=== PATIENT | female | born 1960 | race Caucasian/White ===

== ENCOUNTER 2017-12-23 09:23 | Inpatient (IN) ==
[2017-12-23] MEDS ORDERED: Hydrocortisone Sod Succinate 100 MG Vial IV.PUSH ONE (10:00)
[2017-12-23] MEDS ORDERED: Sod Chloride 0.9% Inj 1,000 ML IV.SIG ONE (10:00)
--- NOTE | 2017-12-23 10:08 | ED ---
HPI General Chief complaint: Nausea/Vomiting/Diarrhea Stated complaint: bladder inf/vomiting/high bp x 4 dasy Time Seen by Provider: 12/23/17 10:00 Source: patient Mode of arrival: ambulatory Limitations: no limitations History of Present Illness HPI narrative: This 57-year-old female is complaining of vomiting and diarrhea. She says she has not been able to hold anything down since Thursday. She has been having a lot of pain across her lower back. She does have a history of rheumatoid arthritis and is on medication for that. She is supposed to take prednisone daily but has not been able to take any medication for a couple of days. She has a implant in her bladder which controls her urine output and she is not able to have MRIs done. She did go to urgent care center this morning and was told she had a urinary tract infection but was recommended that she come here. Related Data Home Medications Medication Instructions Recorded Confirmed aripiprazole [Abilify] 10 mg PO DAILY 12/23/17 12/23/17 duloxetine [Cymbalta] 60 mg PO DAILY 12/23/17 12/23/17 esomeprazole magnesium [Nexium] 40 mg PO DAILY 12/23/17 12/23/17 metoprolol succinate [Toprol XL] 25 mg PO DAILY 12/23/17 12/23/17 naproxen 500 mg PO BID 12/23/17 12/23/17 prednisolone 5 mg PO DAILY 12/23/17 12/23/17 ranitidine HCl [Zantac] 150 mg PO DAILY 12/23/17 12/23/17 rosuvastatin [Crestor] 10 mg PO DAILY 12/23/17 12/23/17 tizanidine 4 mg PO TID 12/23/17 12/23/17 topiramate [Topamax] 100 mg PO BID 12/23/17 12/23/17 Allergies Allergy/AdvReac Type Severity Reaction Status Date / Time Iodinated Contrast- Oral and Allergy Severe Hives Verified 12/23/17 09:39 IV Dye [Contrast] nitrofurantoin Allergy Severe Hives Verified 12/23/17 10:00 [From Macrobid] Sulfa (Sulfonamide Allergy Severe Hives Verified 12/23/17 10:00 Antibiotics) Review of Systems Constitutional Reports malaise and Reports poor appetite Gastrointestinal Reports nausea and Reports vomiting Musculoskeletal Reports back pain and Reports arthralgias [facility] Medical History Medical History Asthma (Acute) Depression (Acute) GERD (gastroesophageal reflux disease) (Acute) Headache, migraine (Acute) Rheumatoid arthritis (Acute) Surgical History Surgical History H/O foot surgery (Acute) History of esophageal surgery (Acute) History of hip replacement (Acute) Social History Social History Substance History: No History of Abuse Second Hand Smoke Exposure: No Smoking Status: Never smoker How Often Do You Have a Drink Containing Alcohol: Monthly or less Recent Travel in [facility] within the Last 8 Weeks: No Recent Out of Country Travel within the Last 8 Weeks: No Immunization History Tetanus Immunization: Unsure Exam Narrative Exam Narrative: GENERAL: Well-developed female SKIN: Focused skin assessment warm/dry. HEAD: Atraumatic. Normocephalic. EYES: Pupils equal and round. No scleral icterus. No injection or drainage. ENT: No nasal bleeding or discharge. Mucous membranes dry NECK: Trachea midline. No JVD. CARDIOVASCULAR: Regular rate and rhythm. No murmur appreciated. RESPIRATORY: No accessory muscle use. Clear to auscultation. Breath sounds equal bilaterally. GASTROINTESTINAL: Abdomen soft, mild diffuse tenderness. There is no distention. Bowel sounds are present MUSCULOSKELETAL: No obvious deformities. No clubbing. No cyanosis. No edema. NEUROLOGICAL: Awake and alert. No obvious cranial nerve deficits. Motor grossly within normal limits. Normal speech. She has tenderness of the lower back. Sensation of the legs is intact strength appears equal PSYCHIATRIC: Appropriate mood and affect; insight and judgment normal. Course Initial Documented Vital Signs Temperature 100.7 F H 12/23/17 09:34 Pulse Rate 120 H 12/23/17 09:34 Respiratory Rate 20 12/23/17 09:34 Blood Pressure 123/69 12/23/17 09:34 Pulse Oximetry 97 12/23/17 09:34 Last Documented Vital Signs Temperature 100.7 F H 12/23/17 09:34 Pulse Rate 108 H 12/23/17 09:56 Respiratory Rate 16 12/23/17 09:56 Blood Pressure 128/75 12/23/17 09:56 Pulse Oximetry 96 12/23/17 09:56 Medical Decision Making MDM Narrative Medical decision making narrative: Patient has received IV fluids. Her hemoglobin is 13 8 with a white count of 9.6. Her platelet count is only 50, 000. Patient is not aware of any history of previous problem with platelets. Potassium is low at 3.1. Urinalysis does show significant urinary tract infection and she has been started on Rocephin. She has been given solute Cortef because she has been vomiting and has been on daily prednisone. I think the patient requires admission for initial treatment Medical Screen Exam Complete: Yes Emergency Medical Condition: Yes Differential Diagnosis Differential Diagnosis: Differential includes gastroenteritis, bowel obstruction , back pain exacerbation, Benson's crisis, Lab Data Result diagrams: 12/23/17 10:10 12/23/17 10:10 Lab Results 12/23/17 12/23/17 12/23/17 Range/Units 10:00 10:10 10:10 CBC w Diff Slide review pending WBC 9.6 (4.0-11.0) th/mm3 RBC 4.46 (4.00-5.30) mil/mm3 Hgb 13.8 (11.6-15.3) gm/dL Hct 41.1 (35.0-46.0) % MCV 92.2 (80.0-100.0) fL MCH 31.0 (27.0-34.0) pg MCHC 33.7 (32.0-36.0) % RDW 13.6 (11.6-17.2) % Plt Count 50 L (150-450) th/mm3 MPV 10.4 (7.0-11.0) fL Neut % (Auto) 85.8 H (16.0-70.0) % Lymph % (Auto) 5.2 L (9.0-44.0) % Hale % (Auto) 6.5 (0.0-8.0) % Eos % (Auto) 0.9 (0.0-4.0) % Baso % (Auto) 1.6 (0.0-2.0) % Neut # (Auto) 8.2 H (1.8-7.7) th/mm3 Lymph # (Auto) 0.5 L (1.0-4.8) th/mm3 Hale # (Auto) 0.6 (0.0-0.9) th/mm3 Eos # (Auto) 0.1 (0.0-0.4) th/mm3 Baso # (Auto) 0.2 (0.0-0.2) th/mm3 WBC Differential . Diff Scan Auto diff confirmed Differential Comment . Platelet Estimate Low L (Normal) Platelet Morphology Normal (Normal) Sodium 142 (136-145) meq/L Potassium 3.1 L (3.5-5.1) meq/L Chloride 106 (98-107) meq/L Carbon Dioxide 27.5 (21.0-32.0) meq/L Anion Gap 9 (5-15) meq/L BUN 7 (7-18) mg/dL Creatinine 0.99 (0.50-1.00) mg/dL Estimated GFR 57 L (>89) mL/min Random Glucose 152 H (74-106) mg/dL Lactic Acid (0.4-2.0) mmol/L Calcium 8.4 L (8.5-10.1) mg/dL Magnesium 2.1 (1.5-2.5) mg/dL Total Bilirubin 0.5 (0.2-1.0) mg/dL AST 18 (15-37) U/L ALT 22 (10-53) U/L Alkaline Phosphatase 121 H (45-117) U/L Total Protein 6.4 (6.4-8.2) g/dL Albumin 3.3 L (3.4-5.0) g/dL Ur Collection Type Clean catch Urine Color Yellow (Yellw/Straw) Urine Clarity Slightly cloudy (Clear) Urine pH 6.0 (5.0-8.5) Ur Specific Anton 1.010 (1.002-1.035) Urine Protein 30 H (Neg-Trace) mg/dL Urine Glucose (UA) Negative (Negative) mg/dL Urine Ketones 40 H (Negative) mg/dL Urine Occult Blood Moderate H (Negative) Urine Nitrate Positive H (Negative) Urine Bilirubin Negative (Negative) Urine Urobilinogen 0.2 (Less than 2) mg/dL Ur Leukocyte Esterase Moderate H (Negative) Urine RBC 4-15 H (0-3) /hpf Urine WBC 51-189 H (0-5) /hpf Ur Squamous Epith Cells 0-5 (0-5) /hpf Urine Bacteria Many H (None) /hpf Micro UA Comment Culture indicated Ur Microscopic Review Microscopic reviewed Urine Culture Comments Culture indicated 12/23/17 Range/Units 10:10 CBC w Diff WBC (4.0-11.0) th/mm3 RBC (4.00-5.30) mil/mm3 Hgb (11.6-15.3) gm/dL Hct (35.0-46.0) % MCV (80.0-100.0) fL MCH (27.0-34.0) pg MCHC (32.0-36.0) % RDW (11.6-17.2) % Plt Count (150-450) th/mm3 MPV (7.0-11.0) fL Neut % (Auto) (16.0-70.0) % Lymph % (Auto) (9.0-44.0) % Hale % (Auto) (0.0-8.0) % Eos % (Auto) (0.0-4.0) % Baso % (Auto) (0.0-2.0) % Neut # (Auto) (1.8-7.7) th/mm3 Lymph # (Auto) (1.0-4.8) th/mm3 Hale # (Auto) (0.0-0.9) th/mm3 Eos # (Auto) (0.0-0.4) th/mm3 Baso # (Auto) (0.0-0.2) th/mm3 WBC Differential Diff Scan Differential Comment Platelet Estimate (Normal) Platelet Morphology (Normal) Sodium (136-145) meq/L Potassium (3.5-5.1) meq/L Chloride (98-107) meq/L Carbon Dioxide (21.0-32.0) meq/L Anion Gap (5-15) meq/L BUN (7-18) mg/dL Creatinine (0.50-1.00) mg/dL Estimated GFR (>89) mL/min Random Glucose (74-106) mg/dL Lactic Acid 1.7 (0.4-2.0) mmol/L Calcium (8.5-10.1) mg/dL Magnesium (1.5-2.5) mg/dL Total Bilirubin (0.2-1.0) mg/dL AST (15-37) U/L ALT (10-53) U/L Alkaline Phosphatase (45-117) U/L Total Protein (6.4-8.2) g/dL Albumin (3.4-5.0) g/dL Ur Collection Type Urine Color (Yellw/Straw) Urine Clarity (Clear) Urine pH (5.0-8.5) Ur Specific Anton (1.002-1.035) Urine Protein (Neg-Trace) mg/dL Urine Glucose (UA) (Negative) mg/dL Urine Ketones (Negative) mg/dL Urine Occult Blood (Negative) Urine Nitrate (Negative) Urine Bilirubin (Negative) Urine Urobilinogen (Less than 2) mg/dL Ur Leukocyte Esterase (Negative) Urine RBC (0-3) /hpf Urine WBC (0-5) /hpf Ur Squamous Epith Cells (0-5) /hpf Urine Bacteria (None) /hpf Micro UA Comment Ur Microscopic Review Urine Culture Comments Imaging Data Radiologist's impression: Abdomen/Pelvis CT 12/23/17 10:04 CONCLUSION: 1. Fibroid uterus, small hiatal hernia. 2. Nonspecific gas pattern. I do not see evidence for colitis or inflammatory changes in the mesentery. Lumbar Spine CT 12/23/17 10:04 CONCLUSION: 1. Marked intervertebral disc space narrowing and sclerosis at the L2-3 level consistent with degenerative disease. No evidence of an acute fracture Discharge Plan Discharge Disposition Patient Disposition: 30 Still Patient Discharge Condition Condition: Fair Discharge Details Diagnosis: Urinary tract infection Physicians Team ED Provider: Spencer Garcia Primary Care Provider: NON STAFF,PROVIDER Rxs /Orders / Referrals /Forms Prescriptions: No Action tizanidine 4 mg Tablet 4 mg PO TID RF: 0 metoprolol succinate [Toprol XL] 25 mg Tablet Extended Release 24 Hr 25 mg PO DAILY RF: 0 topiramate [Topamax] 100 mg Tablet 100 mg PO BID RF: 0 naproxen 500 mg Tablet 500 mg PO BID RF: 0 esomeprazole magnesium [Nexium] 40 mg Capsule,Delayed Release(Dr/Ec) 40 mg PO DAILY RF: 0 ranitidine HCl [Zantac] 150 mg Tablet 150 mg PO DAILY RF: 0 prednisolone 5 mg Tablet 5 mg PO DAILY RF: 0 aripiprazole [Abilify] 10 mg Tablet 10 mg PO DAILY RF: 0 rosuvastatin [Crestor] 10 mg Tablet 10 mg PO DAILY RF: 0 duloxetine [Cymbalta] 60 mg Capsule,Delayed Release(Dr/Ec) 60 mg PO DAILY RF: 0 Discharge Interventions Interventions: Vital Signs Last Done: 12/23/17 09:56 Status ED Status: With Doctor
[2017-12-23 10:34] LABS: Baso # (Auto) 0.2 th/mm3 (0.0-0.2); Baso % (Auto) 1.6 % (0.0-2.0); Eos # (Auto) 0.1 th/mm3 (0.0-0.4); Eos % (Auto) 0.9 % (0.0-4.0); Hematocrit 41.1 % (35.0-46.0); Hemoglobin 13.8 gm/dL (11.6-15.3); Lymph # (Auto) 0.5 th/mm3 (1.0-4.8); Lymph % (Auto) 5.2 % (9.0-44.0); Mean Corpuscular HGB Conc 33.7 % (32.0-36.0); Mean Corpuscular Volume 92.2 fL (80.0-100.0); Mean Platelet Volume 10.4 fL (7.0-11.0); Mono # (Auto) 0.6 th/mm3 (0.0-0.9); Mono % (Auto) 6.5 % (0.0-8.0); Neut # (Auto) 8.2 th/mm3 (1.8-7.7); Neut % (Auto) 85.8 % (16.0-70.0); Platelet Count 50 th/mm3 (150-450); Red Blood Count 4.46 mil/mm3 (4.00-5.30); Red Cell Distribution Width 13.6 % (11.6-17.2); White Blood Count 9.6 th/mm3 (4.0-11.0)
[2017-12-23 10:34] LABS: Bilirubin,Urine Negative (Negative); Clarity,Urine Slightly Cloudy (Clear); Color,Urine Yellow (Yellw/Straw); Glucose,Urine (UA) Negative (Negative); Leukocyte Esterase,Urine Moderate (Negative); Nitrite,Urine Positive (Negative); Urobilinogen,Urine 0.2 mg/dL (Less than 2)
[2017-12-23 10:45] LABS: Chloride 106 meq/L (98-107); Potassium 3.1 meq/L (3.5-5.1); Sodium 142 meq/L (136-145)
[2017-12-23 10:45] LABS: Bacteria,Urine Many /hpf; Squamous Epithelial Cell,Urine 0-5 /hpf (0-5); WBC,Urine 51-189 /hpf (0-5)
[2017-12-23 10:48] LABS: Albumin 3.3 g/dL (3.4-5.0); Anion Gap 9 meq/L (5-15); Blood Urea Nitrogen 7 mg/dL (7-18); Calcium 8.4 mg/dL (8.5-10.1); Carbon Dioxide 27.5 meq/L (21.0-32.0); Glucose,Random 152 mg/dL (74-106); Magnesium 2.1 mg/dL (1.5-2.5)
[2017-12-23 10:51] LABS: Alanine Aminotransferase 22 U/L (10-53); Aspartate Aminotransferase 18 U/L (15-37); Glomerular Filtration Rate 57 mL/min (>89)
[2017-12-23 10:53] LABS: Total Protein 6.4 g/dL (6.4-8.2)
[2017-12-23 10:54] LABS: Alkaline Phosphatase 121 U/L (45-117)
--- NOTE | 2017-12-23 10:58 | CT ---
EXAM DATE: 12/23/2017 10:49 AM EST AGE/SEX: 57 years / Female INDICATIONS: Nausea, vomiting and diarrhea. Low back pain. CLINICAL DATA: This is the patient's initial encounter. Patient reports that signs and symptoms have been present for 4 - 6 days and indicates a pain score of 4/10. MEDICAL/SURGICAL HISTORY: Gastroesophageal reflux disease. Asthma. Rheumatoid arthritis. None . RADIATION DOSE: 17.06 CTDI (mGy) COMPARISON: POI, CT ABDOMEN AND PELVIS W/ CONTRAST, 06/12/2015. . TECHNIQUE: Multiple contiguous axial images were obtained through the abdomen. Images were obtained using multiple row detector helical technique. Using automated exposure control and adjustment of the mA and/or kV according to patient size, radiation dose was kept as low as reasonably achievable to o btain optimal diagnostic quality images. DICOM format image data is available electronically for rev iew and comparison. FINDINGS: Lower lungs are clear. Liver free of focal defects. Gallbladder prominent without stones or gallbladder wall thickening Pancreas and spleen appear normal Adrenals are unremarkable Right and left kidneys appear normal Cecum, ascending, transverse and descending colon appear normal. There is no significant retroperitoneal adenopathy In the pelvis there are minimal diverticuli in the sigmoid colon. Fibroid uterus is evident with some calcification. Total hip arthroplasty on the right causing moderate artifact There is no ascites or adenopathy. CONCLUSION: 1. Fibroid uterus, small hiatal hernia. 2. Nonspecific gas pattern. I do not see evidence for colitis or inflammatory changes in the mesente ry. Electronically signed by: Sharad Sosa MD 12/23/2017 10:57 AM EST
[2017-12-23 11:08] LABS: Platelet Morphology Normal (Normal)
[2017-12-23] MEDS ORDERED: Potassium Chlor 10 mEq Premix 10 MEQ/100 ML PIGGYBACK IV.SIG ONE (11:09)
--- NOTE | 2017-12-23 11:09 | CT ---
EXAM DATE: 12/23/2017 10:59 AM EST AGE/SEX: 57 years / Female INDICATIONS: Low back pain. Nausea, vomiting and diarrhea. CLINICAL DATA: This is the patient's initial encounter. Patient reports that signs and symptoms have been present for 4 - 6 days and indicates a pain score of 10/10. MEDICAL/SURGICAL HISTORY: Gastroesophageal reflux disease. Rheumatoid arthritis. Asthma. None. RADIATION DOSE: . CTDI (mGy) ; Reconstructed from previous dataset, no dose COMPARISON: No prior exams available for comparison. TECHNIQUE: Contiguous axial images were acquired with a multirow detector CT scanner without contras t. Multiplanar reconstructions in the sagittal and coronal plane were also performed. Using automate d exposure control and adjustment of the mA and/or kV according to patient size, radiation dose was k ept as low as reasonably achievable to obtain optimal diagnostic quality images. DICOM format image data is available electronically for review and comparison. FINDINGS: Vertebrae: Normal vertebral body height. Marked intervertebral disc space narrowing with sclerosis a t the L2-3 level. Alignment: Normal. No subluxation. T12-L1: The thecal sac has a normal diameter. No evidence of disc bulge or protrusion. The neural foramina are patent bilaterally. L1-L2: The thecal sac has a normal diameter. No evidence of disc bulge or protrusion. The neural f oramina are patent bilaterally. L2-L3: The thecal sac has a normal diameter. No evidence of disc bulge or protrusion. The neural f oramina are patent bilaterally. L3-L4: The thecal sac has a normal diameter. No evidence of disc bulge or protrusion. The neural f oramina are patent bilaterally. L4-L5: The thecal sac has a normal diameter. No evidence of disc bulge or protrusion. The neural f oramina are patent bilaterally. L5-S1: The thecal sac has a normal diameter. No evidence of disc bulge or protrusion. The neural f oramina are patent bilaterally. CONCLUSION: 1. Marked intervertebral disc space narrowing and sclerosis at the L2-3 level consistent with degene rative disease. No evidence of an acute fracture Electronically signed by: Melvin Ashley MD 12/23/2017 11:07 AM EST
[2017-12-23] MEDS: Sod Chloride 0.9% Inj 1,000 ML IV.CONT SCH ×3 (11:27→15:45)
[2017-12-23] MEDS ORDERED: Morphine Sulfate Inj 8 MG/ML Vial IV.PUSH ONE (11:34)
[2017-12-23] MEDS ORDERED: Bisacodyl 10 MG Supp RECTAL PRN (12:43)
--- NOTE | 2017-12-23 13:30 | P.HP ---
History of Present Illness Primary Care Physician: PROVIDER NON STAFF Chief Complaint: Nausea, vomiting and diarrhea History of Present Illness: This is a 57-year-old female patient with a known medical history of urinary frequency with bladder stimulator placement, RA, hyperlipemia, and GERD who presented to the ED with complaints of nausea, vomiting and diarrhea x 3 days. Patient states that she has been sick to her stomach starting on Thursday and has been unable to eat anything without vomiting. She also states that she has had some loose stool over the weekend, denies any fever at home. Does admit to chills. She denies any cough, shortness of breath, abdominal pain, or dysuria. Does complain of urinary frequency abnormal to her baseline. Denies any recent antibiotic use or recent UTI. Patient does have a history of a bladder stimulator that was placed roughly 15 years ago, follows with Dr. Nash, this was rechecked about 2 months ago without any problems. Patient does follow with PCP in [place], patient [place] her [place]. PCP has recently placed her on prednisone for better control of her RA pain. - Diagnosis (1) Nausea and vomiting (2) Urinary tract infection (3) Thrombocytopenia Review of Systems All other systems reviewed negative except as stated in HPI PMFSH - History History Provided By: Patient - Medical History Medical History: Medical History (Last Reviewed 12/23/17 @ 13:27 by Eulalia Jansen) Asthma Depression GERD (gastroesophageal reflux disease) Headache, migraine Rheumatoid arthritis - Surgical History Surgical History: Surgical History (Last Updated 12/23/17 @ 13:28 by Eulalia Jansen) History of knee replacement History of tonsillectomy H/O foot surgery History of esophageal surgery History of hip replacement - Family History Family History: Family History (Last Updated 12/23/17 @ 13:27 by Eulalia Jansen) Mother Breast cancer - Social History I have reviewed the patient's Social History: Yes - Tobacco History Second Hand Smoke Exposure: No Smoking Status: Never smoker - Alcohol History How Often Do You Have a Drink Containing Alcohol: Monthly or less - Substance Use History Substance History: No History of Abuse - Travel History Recent Travel in the [place] Within the Last 8 Weeks: No Recent Travel Out of the Country Within the Last 8 Weeks: No - Immunization History Tetanus Immunization: Unsure Medications and Allergies Active Medications: Active Medications Acetaminophen (Tylenol) 650 mg PO Q4H PRN PRN Reason: Temp > 100.4 Al Hydroxide/Mg Hydroxide (Milk Of Magnesia Liq) 30 ml PO Q12H PRN PRN Reason: Mild Constipation Bisacodyl (Dulcolax Supp) 10 mg RECTAL DAILY PRN PRN Reason: SEVERE CONSITIPATION Sodium Chloride (Ns Inj) 1,000 mls @ 300 mls/hr IV.CONT .Q3H20M MATHIEU Last Infusion: 12/23/17 12:23 Dose: 300 mls/hr Sodium Chloride (Ns Inj) 1,000 mls @ 100 mls/hr IV.CONT .Q10H MATHIEU Ceftriaxone Sodium 1,000 mg/ (Sodium Chloride) 100 mls @ 200 mls/hr IV.SIG Q24H MATHIEU Lactulose (Lactulose Liq) 30 ml PO DAILY PRN PRN Reason: SEVERE CONSITIPATION Ondansetron HCl (Zofran Inj) 4 mg IV.PUSH Q6H PRN PRN Reason: NAUSEA OR VOMITING Sennosides (Senokot) 17.2 mg PO Q12H PRN PRN Reason: Moderate Constipation Sodium Chloride (Ns Flush) 2 ml IV.FLUSH PRN PRN PRN Reason: FLUSH AFTER USING IV ACCESS Allergies Allergy/AdvReac Type Severity Reaction Status Date / Time Iodinated Contrast- Oral and Allergy Severe Hives Verified 12/23/17 09:39 IV Dye [Contrast] nitrofurantoin Allergy Severe Hives Verified 12/23/17 10:00 [From Macrobid] Sulfa (Sulfonamide Allergy Severe Hives Verified 12/23/17 10:00 Antibiotics) Home Medications Medication Instructions Recorded Confirmed Type aripiprazole [Abilify] 10 mg PO DAILY 12/23/17 12/23/17 History duloxetine [Cymbalta] 60 mg PO DAILY 12/23/17 12/23/17 History esomeprazole magnesium [Nexium] 40 mg PO DAILY 12/23/17 12/23/17 History metoprolol succinate [Toprol XL] 25 mg PO DAILY 12/23/17 12/23/17 History naproxen 500 mg PO BID 12/23/17 12/23/17 History prednisolone 5 mg PO DAILY 12/23/17 12/23/17 History ranitidine HCl [Zantac] 150 mg PO DAILY 12/23/17 12/23/17 History rosuvastatin [Crestor] 10 mg PO DAILY 12/23/17 12/23/17 History tizanidine 4 mg PO TID 12/23/17 12/23/17 History topiramate [Topamax] 100 mg PO BID 12/23/17 12/23/17 History Exam Vital signs: Vital Signs 12/23/17 09:34 12/23/17 09:56 12/23/17 12:32 Temperature 100.7 F H Pulse Rate 120 H 108 H 102 H Respiratory Rate 20 16 16 Blood Pressure 123/69 128/75 142/70 H Pulse Oximetry 97 96 98 Intake & Output 12/22/17 12/23/17 12/23/17 18:59 06:59 18:59 Intake Total 1500 / 1500 Balance 1500 / 1500 Weight 85.8 kg Intake: IV 1500 / 1500 NS Inj 1,000 ML @ 300 mls/hr IV 300 / 300 .CONT .Q3H20M [facility] Rx#: [id number] KCl 10 mEq Premix Inj 10 meq In 100 / 100 100 ml @ 100 mls/hr IV.SIG ONCE ONE Rx#:[id number] NS Inj 1,000 ML @ Wide Open IV. 1000 / 1000 SIG BOLUS ONE Rx#:[id number] Rocephin Inj 1,000 MG In NS Inj 100 / 100 100 ML @ 200 mls/hr IV.SIG ONCE ONE Rx#:[id number] Narrative: GENERAL: Well-developed, well-nourished patient in [facility]. SKIN: Warm and dry. No rash. HEAD: Normocephalic. Atraumatic. EYES: Pupils equal and round. No scleral icterus. No injection or drainage. ENT: No nasal bleeding or discharge. Mucous membranes pink and moist. NECK: Supple. Trachea midline. CARDIOVASCULAR: Regular rate and rhythm. S1, S2 noted. No murmur appreciated. RESPIRATORY: No accessory muscle use. Clear to auscultation. Breath sounds equal bilaterally. GASTROINTESTINAL: Abdomen soft, non-tender, nondistended. Normoactive bowel sounds x4. MUSCULOSKELETAL: No obvious deformities. Extremities without clubbing, cyanosis , or edema. NEUROLOGICAL: Awake and alert. No obvious cranial nerve deficits. Motor grossly within normal limits. 5/5 muscle strength in bilateral upper and lower extremities. Normal speech. PSYCHIATRIC: Appropriate mood and affect; insight and judgment normal. Results - Labs CBC & Chem 7: 12/23/17 10:10 12/23/17 10:10 Labs: Laboratory Results - last 24 hr 12/23/17 12/23/17 12/23/17 10:00 10:10 10:10 CBC w Diff Slide review pending WBC 9.6 RBC 4.46 Hgb 13.8 Hct 41.1 MCV 92.2 MCH 31.0 MCHC 33.7 RDW 13.6 Plt Count 50 L MPV 10.4 Neut % (Auto) 85.8 H Lymph % (Auto) 5.2 L [place] % (Auto) 6.5 Eos % (Auto) 0.9 Baso % (Auto) 1.6 Neut # (Auto) 8.2 H Lymph # (Auto) 0.5 L [place] # (Auto) 0.6 Eos # (Auto) 0.1 Baso # (Auto) 0.2 WBC Differential . Diff Scan Auto diff confirmed Differential Comment . Platelet Estimate Low L Platelet Morphology Normal Sodium 142 Potassium 3.1 L Chloride 106 Carbon Dioxide 27.5 Anion Gap 9 BUN 7 Creatinine 0.99 Estimated GFR 57 L Random Glucose 152 H Lactic Acid Calcium 8.4 L Magnesium 2.1 Total Bilirubin 0.5 AST 18 ALT 22 Alkaline Phosphatase 121 H Total Protein 6.4 Albumin 3.3 L Ur Collection Type Clean catch Urine Color Yellow Urine Clarity Slightly cloudy Urine pH 6.0 Ur Specific [place] 1.010 Urine Protein 30 H Urine Glucose (UA) Negative Urine Ketones 40 H Urine Occult Blood Moderate H Urine Nitrate Positive H Urine Bilirubin Negative Urine Urobilinogen 0.2 Ur Leukocyte Esterase Moderate H Urine RBC 4-15 H Urine WBC 51-189 H Ur Squamous Epith Cells 0-5 Urine Bacteria Many H Micro UA Comment Culture indicated Ur Microscopic Review Microscopic reviewed Urine Culture Comments Culture indicated 12/23/17 10:10 CBC w Diff WBC RBC Hgb Hct MCV MCH MCHC RDW Plt Count MPV Neut % (Auto) Lymph % (Auto) [place] % (Auto) Eos % (Auto) Baso % (Auto) Neut # (Auto) Lymph # (Auto) [place] # (Auto) Eos # (Auto) Baso # (Auto) WBC Differential Diff Scan Differential Comment Platelet Estimate Platelet Morphology Sodium Potassium Chloride Carbon Dioxide Anion Gap BUN Creatinine Estimated GFR Random Glucose Lactic Acid 1.7 Calcium Magnesium Total Bilirubin AST ALT Alkaline Phosphatase Total Protein Albumin Ur Collection Type Urine Color Urine Clarity Urine pH Ur Specific [place] Urine Protein Urine Glucose (UA) Urine Ketones Urine Occult Blood Urine Nitrate Urine Bilirubin Urine Urobilinogen Ur Leukocyte Esterase Urine RBC Urine WBC Ur Squamous Epith Cells Urine Bacteria Micro UA Comment Ur Microscopic Review Urine Culture Comments - Imaging Impressions Abdomen/Pelvis CT 12/23/17 10:04 CONCLUSION: 1. Fibroid uterus, small hiatal hernia. 2. Nonspecific gas pattern. I do not see evidence for colitis or inflammatory changes in the mesentery. Lumbar Spine CT 12/23/17 10:04 CONCLUSION: 1. Marked intervertebral disc space narrowing and sclerosis at the L2-3 level consistent with degenerative disease. No evidence of an acute fracture Caprini VTE Risk Assessment Caprini VTE Risk Assessment: No/Low Risk (score <= 1) Caprini Risk Assessment Model: Point Value = 1 Point Value = 2 Point Value = 3 Point Value = 5 Age 41-60 Minor surgery BMI > 25 kg/m2 Swollen legs Varicose veins or History of unexplained or recurrent spontaneous Oral contraceptives or hormone replacement Sepsis (< 1 month) Serious lung disease, including pneumonia (< 1 month) Abnormal pulmonary function Acute myocardial infarction Congestive heart failure (< 1 month) History of inflammatory bowel disease Medical patient at bed rest Age 61-74 Arthroscopic surgery Major open surgery (> 45 min) Laparoscopic surgery (> 45 min) Malignancy Confined to bed (> 72 hours) Immobilizing plaster cast Central venous access Age >= 75 History of VTE Family history of VTE Factor V Leiden Prothrombin [id number] Lupus anticoagulant Anticardiolipin antibodies Elevated serum homocysteine Heparin-induced thrombocytopenia Other congenital or acquired thrombophilia Stroke (< 1 month) Elective arthroplasty Hip, pelvis, or leg fracture Acute spinal cord injury (< 1 month) Prophylaxis Regimen: Total Risk Factor Score Risk Level Prophylaxis Regimen 0-1 Low Early ambulation 2 Moderate Order ONE of the following: *Sequential Compression Device (SCD) *Heparin 5000 units SQ BID 3-4 Higher Order ONE of the following medications: *Heparin 5000 units SQ TID *Enoxaparin/Lovenox 40 mg SQ daily (WT < 150 kg, CrCl > 30 mL/min) *Enoxaparin/Lovenox 30 mg SQ daily (WT < 150 kg, CrCl > 10-29 mL/min) *Enoxaparin/Lovenox 30 mg SQ BID (WT < 150 kg, CrCl > 30 mL/min) AND/OR *Sequential Compression Device (SCD) 5 or more Highest Order ONE of the following medications: *Heparin 5000 units SQ TID (Preferred with Epidurals) *Enoxaparin/Lovenox 40 mg SQ daily (WT < 150 kg, CrCl > 30 mL/min) *Enoxaparin/Lovenox 30 mg SQ daily (WT < 150 kg, CrCl > 10-29 mL/min) *Enoxaparin/Lovenox 30 mg SQ BID (WT < 150 kg, CrCl > 30 mL/min) AND *Sequential Compression Device (SCD) Assessment and Plan - Assessment (1) Nausea and vomiting Code(s): R11.2 - Nausea with vomiting, unspecified Status: Acute (2) Urinary tract infection Code(s): N39.0 - Urinary tract infection, site not specified Status: Acute (3) Thrombocytopenia Code(s): D69.6 - Thrombocytopenia, unspecified Status: Acute - Plan This is a 57-year-old female patient with: Abnormal UA rule out UTI History of bladder stimulator, placed for urinary frequency -Patient presents with abnormal UA presence of leukocyte esterase, white blood cells and bacteria. Await urine culture. -Started on ceftriaxone IV. Continue. -Febrile, 100.7. No leukocytosis. No dysuria. -Blood cultures ordered and pending. Follow. Rule out sepsis. Does not meet criteria at this time. -Given 1 L NS bolus in ED. Continue IVF. -Supportive care. Nausea and vomiting Dehydration Hypokalemia suspect secondary from above -Abdomen/pelvis CT reviewed showing no acute findings. -K3.1 on presentation. Rec'd supplement in ED. -Continue IVF. -Monitor BMP. Thrombocytopenia -Platelets are 50,000. Denies any history of thrombocytopenia. Will trend. -Will obtain records from patient's primary care office in [place]. -May need to consult hematology if worsening tomorrow without improvement. -Hold home Cymbalta, may be contributing. -Continue to monitor. No obvious signs of bleeding. Rheumatoid arthritis, chronic -Continue home mediations. -Supportive care. Stable at this time. -Toradol as needed for pain. -Lumbar imaging reviewed and showing degenerative disease, no acute findings. DVT Prophylaxis: SCDs. (2) Urinary tract infection Qualifiers: Urinary tract infection type: site unspecified Hematuria presence: without hematuria Qualified Code(s): N39.0 - Urinary tract infection, site not specified
[2017-12-23] MEDS: Ketorolac Inj 30 MG/ML (IVP) Vial IV.PUSH PRN ×2 (15:51→22:39)
[2017-12-23] MEDS: Topiramate 100 MG Tablet PO SCH (20:44)
[2017-12-24] MEDS: Sod Chloride 0.9% Inj 1,000 ML IV.CONT SCH ×3 (01:50→22:16)
[2017-12-24] MEDS: Ketorolac Inj 30 MG/ML (IVP) Vial IV.PUSH PRN ×2 (05:16→22:17)
[2017-12-24 06:26] LABS: Baso % (Auto) 0.5 % (0.0-2.0); Eos # (Auto) 0.1 th/mm3 (0.0-0.4); Eos % (Auto) 0.9 % (0.0-4.0); Hematocrit 34.3 % (35.0-46.0); Lymph # (Auto) 0.7 th/mm3 (1.0-4.8); Lymph % (Auto) 9.6 % (9.0-44.0); Mean Corpuscular Hemoglobin 32.3 pg (27.0-34.0); Mean Corpuscular Volume 92.4 fL (80.0-100.0); Mean Platelet Volume 10.2 fL (7.0-11.0); Mono # (Auto) 0.6 th/mm3 (0.0-0.9); Mono % (Auto) 8.4 % (0.0-8.0); Neut # (Auto) 6.2 th/mm3 (1.8-7.7); Neut % (Auto) 80.6 % (16.0-70.0); Platelet Count 43 th/mm3 (150-450); Red Blood Count 3.71 mil/mm3 (4.00-5.30); Red Cell Distribution Width 13.3 % (11.6-17.2); White Blood Count 7.6 th/mm3 (4.0-11.0)
[2017-12-24 06:50] LABS: RBC Morphology Normal (Normal)
[2017-12-24 06:51] LABS: Calcium 7.6 mg/dL (8.5-10.1); Carbon Dioxide 24.1 meq/L (21.0-32.0)
[2017-12-24 06:55] LABS: Platelet Morphology Normal (Normal)
[2017-12-24 06:58] LABS: Potassium 2.9 meq/L (3.5-5.1)
[2017-12-24] MEDS ORDERED: Mag Sulf 1 gm/100 ml Premix 100 ML IV.SIG ONE (07:38)
--- NOTE | 2017-12-24 08:05 | P.PNIM ---
Subjective Interval history: Follow up n/v, UTI and thrombocytopenia. Patient seen and examined, sitting up in bed comfortably in [facility]. She denies any nausea or vomiting overnight, will advance diet. Does complain of continued lower back pain. Hematology has been consulted for thrombocytopenia, patient denies any history. Obtaining records now from her PCP and recent lab work. Physical Exam Vital signs: Vital Signs 12/23/17 09:34 12/23/17 09:56 12/23/17 12:00 Temperature 100.7 F H 100.3 F H Pulse Rate 120 H 108 H 100 H Respiratory Rate 20 16 20 Blood Pressure 123/69 128/75 130/74 Pulse Oximetry 97 96 100 12/23/17 12:32 12/23/17 16:00 12/23/17 20:00 Temperature 99.2 F 97.3 F L Pulse Rate 102 H 89 79 Respiratory Rate 16 20 20 Blood Pressure 142/70 H 138/65 81/56 L Pulse Oximetry 98 95 12/23/17 20:46 12/24/17 00:00 12/24/17 04:00 Temperature 100 F H 99.1 F Pulse Rate 90 97 H Respiratory Rate 20 20 Blood Pressure 105/70 128/59 L 132/81 Pulse Oximetry 99 99 12/24/17 04:55 Temperature 99.5 F Pulse Rate Respiratory Rate Blood Pressure Pulse Oximetry Intake & Output 12/23/17 12/24/17 12/24/17 18:59 06:59 18:59 Intake Total 2160 / 2160 1459 / 1459 Balance 2160 / 2160 1459 / 1459 Weight 85.8 kg 88.1 kg Intake: IV 1500 / 1500 1339 / 1339 NS Inj 1,000 ML @ 100 mls/hr IV 300 / 300 1339 / 1339 .CONT .Q10H MATHIEU Rx#:[id number] KCl 10 mEq Premix Inj 10 meq In 100 / 100 100 ml @ 100 mls/hr IV.SIG ONCE ONE Rx#:[id number] NS Inj 1,000 ML @ Wide Open IV. 1000 / 1000 SIG BOLUS ONE Rx#:[id number] Rocephin Inj 1,000 MG In NS Inj 100 / 100 100 ML @ 200 mls/hr IV.SIG ONCE ONE Rx#:[id number] Oral 660 / 660 120 / 120 Other: # Voids 6 2 Date of Last Bowel Movement 12/22/17 # Bowel Movements 0 0 Narrative: GENERAL: Well-developed, well-nourished patient in [place]. SKIN: Warm and dry. No rash. HEAD: Normocephalic. Atraumatic. EYES: Pupils equal and round. No scleral icterus. No injection or drainage. ENT: No nasal bleeding or discharge. Mucous membranes pink and moist. NECK: Supple. Trachea midline. CARDIOVASCULAR: Regular rate and rhythm. S1, S2 noted. No murmur appreciated. RESPIRATORY: No accessory muscle use. Clear to auscultation. Breath sounds equal bilaterally. GASTROINTESTINAL: Abdomen soft, non-tender, nondistended. Normoactive bowel sounds x4. MUSCULOSKELETAL: No obvious deformities. Extremities without clubbing, cyanosis , or edema. NEUROLOGICAL: Awake and alert. No obvious cranial nerve deficits. Motor grossly within normal limits. 5/5 muscle strength in bilateral upper and lower extremities. Normal speech. PSYCHIATRIC: Appropriate mood and affect; insight and judgment normal. Results - Labs CBC & Chem 7: 12/24/17 04:55 12/24/17 04:55 Laboratory Results - last 24 hr 12/23/17 12/23/17 12/23/17 10:00 10:10 10:10 CBC w Diff Slide review pending WBC 9.6 RBC 4.46 Hgb 13.8 Hct 41.1 MCV 92.2 MCH 31.0 MCHC 33.7 RDW 13.6 Plt Count 50 L MPV 10.4 Neut % (Auto) 85.8 H Lymph % (Auto) 5.2 L [place] % (Auto) 6.5 Eos % (Auto) 0.9 Baso % (Auto) 1.6 Neut # (Auto) 8.2 H Lymph # (Auto) 0.5 L [place] # (Auto) 0.6 Eos # (Auto) 0.1 Baso # (Auto) 0.2 WBC Differential . Diff Scan Auto diff confirmed Differential Comment . Platelet Estimate Low L Platelet Morphology Normal RBC Morphology Sodium 142 Potassium 3.1 L Chloride 106 Carbon Dioxide 27.5 Anion Gap 9 BUN 7 Creatinine 0.99 Estimated GFR 57 L Random Glucose 152 H Lactic Acid Calcium 8.4 L Magnesium 2.1 Total Bilirubin 0.5 AST 18 ALT 22 Alkaline Phosphatase 121 H Total Protein 6.4 Albumin 3.3 L Ur Collection Type Clean catch Urine Color Yellow Urine Clarity Slightly cloudy Urine pH 6.0 Ur Specific [place] 1.010 Urine Protein 30 H Urine Glucose (UA) Negative Urine Ketones 40 H Urine Occult Blood Moderate H Urine Nitrate Positive H Urine Bilirubin Negative Urine Urobilinogen 0.2 Ur Leukocyte Esterase Moderate H Urine RBC 4-15 H Urine WBC 51-189 H Ur Squamous Epith Cells 0-5 Urine Bacteria Many H Micro UA Comment Culture indicated Ur Microscopic Review Microscopic reviewed Urine Culture Comments Culture indicated 12/23/17 12/24/17 12/24/17 10:10 04:55 04:55 CBC w Diff Slide review pending WBC 7.6 RBC 3.71 L Hgb 12.0 Hct 34.3 L MCV 92.4 MCH 32.3 MCHC 35.0 RDW 13.3 Plt Count 43 L MPV 10.2 Neut % (Auto) 80.6 H Lymph % (Auto) 9.6 [place] % (Auto) 8.4 H Eos % (Auto) 0.9 Baso % (Auto) 0.5 Neut # (Auto) 6.2 Lymph # (Auto) 0.7 L [place] # (Auto) 0.6 Eos # (Auto) 0.1 Baso # (Auto) 0.0 WBC Differential . Diff Scan Auto diff confirmed Differential Comment . Platelet Estimate Low L Platelet Morphology Normal RBC Morphology Normal Sodium 144 Potassium 2.9 L* Chloride 111 H Carbon Dioxide 24.1 Anion Gap 9 BUN 7 Creatinine 0.81 Estimated GFR 72 L Random Glucose 103 Lactic Acid 1.7 Calcium 7.6 L D Magnesium Total Bilirubin AST ALT Alkaline Phosphatase Total Protein Albumin Ur Collection Type Urine Color Urine Clarity Urine pH Ur Specific [place] Urine Protein Urine Glucose (UA) Urine Ketones Urine Occult Blood Urine Nitrate Urine Bilirubin Urine Urobilinogen Ur Leukocyte Esterase Urine RBC Urine WBC Ur Squamous Epith Cells Urine Bacteria Micro UA Comment Ur Microscopic Review Urine Culture Comments - Imaging Impressions Abdomen/Pelvis CT 12/23/17 10:04 CONCLUSION: 1. Fibroid uterus, small hiatal hernia. 2. Nonspecific gas pattern. I do not see evidence for colitis or inflammatory changes in the mesentery. Lumbar Spine CT 12/23/17 10:04 CONCLUSION: 1. Marked intervertebral disc space narrowing and sclerosis at the L2-3 level consistent with degenerative disease. No evidence of an acute fracture Assessment and Plan - Assessment (1) Nausea and vomiting Code(s): R11.2 - Nausea with vomiting, unspecified Status: Acute (2) Urinary tract infection Code(s): N39.0 - Urinary tract infection, site not specified Status: Acute (3) Thrombocytopenia Code(s): D69.6 - Thrombocytopenia, unspecified Status: Acute - Plan This is a 57-year-old female patient with: Abnormal UA rule out UTI History of bladder stimulator, placed for urinary frequency -Patient presents with abnormal UA presence of leukocyte esterase, white blood cells and bacteria. Await urine culture. -Started on ceftriaxone IV. Continue. -Febrile, 100.7. Mild fever overnight as well. No leukocytosis. No dysuria. -Blood cultures ordered and pending. Follow. Rule out sepsis. Does not meet criteria at this time. -Given 1 L NS bolus in ED. Continue IVF. -Supportive care. Nausea and vomiting Dehydration Hypokalemia suspect secondary from above -Abdomen/pelvis CT reviewed showing no acute findings. -K3.1 on presentation. Rec'd supplement in ED. Down today to 2.9. Will replace. Check magnesium level. Advance diet. -Continue IVF. -Monitor BMP. Thrombocytopenia -Platelets are 50,000, down today to 42,000. Denies any history of thrombocytopenia. Will trend. -Will obtain records from patient's primary care office in [place]. -Consult placed to hematology, input and recommendations pending. -Hold home Cymbalta, may be contributing. -Continue to monitor. No obvious signs of bleeding. Rheumatoid arthritis, chronic -Continue home mediations. -Supportive care. Stable at this time. -Toradol as needed for pain. Has helped the pain. Continue. -Lumbar imaging reviewed and showing degenerative disease, no acute findings. DVT Prophylaxis: SCDs. Discharge Planning: Awaiting hematology consult and urine culture results. (2) Urinary tract infection Qualifiers: Urinary tract infection type: site unspecified Hematuria presence: without hematuria Qualified Code(s): N39.0 - Urinary tract infection, site not specified
[2017-12-24] MEDS ORDERED: Famotidine 20 MG Tablet PO SCH (09:00)
[2017-12-24] MEDS: ARIPiprazole 10 MG Tablet PO SCH (10:10)
[2017-12-24] MEDS: prednisoLONE (w/Alcohol) Liq 15 MG/5 ML Oral Syringe PO SCH (10:12)
[2017-12-24] MEDS: Topiramate 100 MG Tablet PO SCH ×2 (10:13→20:29)
[2017-12-24] MEDS: Potassium Chlor 20 mEq Premix 20 MEQ/100 ML PIGGYBACK IV.SIG SCH ×2 (11:44→14:48)
--- NOTE | 2017-12-24 14:54 | P.CONID ---
History of Present Illness Service: Infectious disease Consult date: 12/24/17 Requesting Physician: Gregorio Burroughs Reason for Consult: Evaluate patient with GNR bacteremia Primary Care Provider: PROVIDER NON STAFF Chief Complaint: Nausea, vomiting and diarrhea History of Present Illness: Patient seen and examined. Records reviewed. Patient is a 57-year-old female admitted to the hospital complaining of severe back pain, nausea and vomiting and diarrhea that started last December 20. Patient has problem with urinary frequency and she has a bladder stimulator to help that. She has a first 1 placed but is now working well so she had a second 1 placed by a decontamination technician in [facility] about 7 years ago. It gets suggested as needed depending on her symptoms. She has not had any problem with UTI since she had a stimulator in place. She had UTI when she was younger. On this admission she started having pain in her low back. She also started having vomiting and chills. She really did not take her temperature. She denies any problem with dysuria, but had noted some increased frequency and she just adjusted her stimulator. That has been has been convincing her to, and she finally did and she was admitted yesterday. Blood cultures done on admission are now reported as growing gram-negative sonya. Her urinalysis did show pyuria, urine culture with gram-negative sonya. Lumbar spine CT showing some evidence of degenerative disease. CT of the abdomen and pelvis did not show any kidney abnormality or any hydronephrosis. Her WBC is normal. She has had some fever since admission. Infectious disease consultation has been requested to assist with evaluation and treatment. Review of Systems Constitutional: Reports chills, Reports lack of energy, Reports malaise Eyes: Denies discharge, Denies dry eyes Ears, Nose, Mouth, and Throat: Denies difficulty swallowing, Denies facial pain , Denies nasal discharge, Denies sore throat Cardiovascular: Denies chest pain, Denies leg swelling, Denies shortness of breath Respiratory: Denies chest congestion, Denies cough, Denies shortness of breath with activity Gastrointestinal: Reports loose stools, Reports nausea, Reports vomiting, Denies abdominal pain, Denies pain with swallowing Genitourinary: Denies blood in urine, Denies difficulty starting urination, Denies difficulty urinating, Denies painful urination Musculoskeletal: Reports back pain, Denies joint swelling Skin/Breast: Reports rash, Reports sores, Reports wounds Neurologic: Denies headache(s) PMFSH - History History Provided By: Patient - Medical History Medical History: Medical History (Last Reviewed 12/24/17 @ 14:50 by Latesha Shah MD) Asthma Depression GERD (gastroesophageal reflux disease) Headache, migraine Rheumatoid arthritis - Surgical History Surgical History: Surgical History (Last Reviewed 12/24/17 @ 14:50 by Latesha Shah MD) History of knee replacement History of tonsillectomy H/O foot surgery History of esophageal surgery History of hip replacement - Family History Family History: Family History (Last Reviewed 12/24/17 @ 14:50 by Latseha Shah MD) Mother Breast cancer - Tobacco History Second Hand Smoke Exposure: No Smoking Status: Never smoker - Alcohol History How Often Do You Have a Drink Containing Alcohol: Monthly or less - Substance Use History Substance History: No History of Abuse - Travel History Recent Travel in the [facility] Within the Last 8 Weeks: No Recent Travel Out of the Country Within the Last 8 Weeks: No - Immunization History Tetanus Immunization: Unsure Medications and Allergies Active Medications: Active Medications Acetaminophen (Tylenol) 650 mg PO Q4H PRN PRN Reason: Temp > 100.4 Al Hydroxide/Mg Hydroxide (Milk Of Magnesia Liq) 30 ml PO Q12H PRN PRN Reason: Mild Constipation Aripiprazole (Abilify) 10 mg PO DAILY [facility] Last Admin: 12/24/17 10:10 Dose: 10 mg Bisacodyl (Dulcolax Supp) 10 mg RECTAL DAILY PRN PRN Reason: SEVERE CONSITIPATION Famotidine (Pepcid) 150 mg PO BID [facility] Last Admin: 12/24/17 10:11 Dose: 140 mg Sodium Chloride (Ns Inj) 1,000 mls @ 100 mls/hr IV.CONT .Q10H [facility] Last Admin: 12/24/17 11:44 Dose: 100 mls/hr Piperacillin/Tazobactam/Dextrose (Zosyn 4.5 Gm Premix) 4.5 gm in 100 mls @ 200 mls/hr IV.SIG Q6H [facility] Ketorolac Tromethamine (Toradol Inj) 15 mg IV.PUSH Q6H PRN PRN Reason: PAIN SCALE 1 TO 10 Last Admin: 12/24/17 05:16 Dose: 15 mg Lactulose (Lactulose Liq) 30 ml PO DAILY PRN PRN Reason: SEVERE CONSITIPATION Metoprolol Succinate (Toprol Xl) 25 mg PO DAILY [facility] Last Admin: 12/24/17 10:13 Dose: 25 mg Ondansetron HCl (Zofran Inj) 4 mg IV.PUSH Q6H PRN PRN Reason: NAUSEA OR VOMITING Pantoprazole Sodium (Protonix) 40 mg PO DAILY [facility] Last Admin: 12/24/17 10:13 Dose: 40 mg Prednisone (Prednisolone (W/Alcohol) Liq) 5 mg PO DAILY [facility] Last Admin: 12/24/17 10:12 Dose: 5 mg Sennosides (Senokot) 17.2 mg PO Q12H PRN PRN Reason: Moderate Constipation Sodium Chloride (Ns Flush) 2 ml IV.FLUSH PRN PRN PRN Reason: FLUSH AFTER USING IV ACCESS Tizanidine HCl (Zanaflex) 4 mg PO TID [facility] Last Admin: 12/24/17 10:14 Dose: 4 mg Topiramate (Topamax) 100 mg PO BID [facility] Last Admin: 12/24/17 10:13 Dose: 100 mg Allergies Allergy/AdvReac Type Severity Reaction Status Date / Time Iodinated Contrast- Oral and Allergy Severe Hives Verified 12/23/17 09:39 IV Dye [Contrast] nitrofurantoin Allergy Severe Hives Verified 12/23/17 10:00 [From Macrobid] Sulfa (Sulfonamide Allergy Severe Hives Verified 12/23/17 10:00 Antibiotics) Home Medications Medication Instructions Recorded Confirmed Type aripiprazole [Abilify] 10 mg PO DAILY 12/23/17 12/23/17 History duloxetine [Cymbalta] 60 mg PO DAILY 12/23/17 12/23/17 History esomeprazole magnesium [Nexium] 40 mg PO DAILY 12/23/17 12/23/17 History metoprolol succinate [Toprol XL] 25 mg PO DAILY 12/23/17 12/23/17 History naproxen 500 mg PO BID 12/23/17 12/23/17 History prednisolone 5 mg PO DAILY 12/23/17 12/23/17 History ranitidine HCl [Zantac] 150 mg PO DAILY 12/23/17 12/23/17 History rosuvastatin [Crestor] 10 mg PO DAILY 12/23/17 12/23/17 History tizanidine 4 mg PO TID 12/23/17 12/23/17 History topiramate [Topamax] 100 mg PO BID 12/23/17 12/23/17 History Exam Vital signs: Vital Signs 12/23/17 16:00 12/23/17 20:00 12/23/17 20:46 Temperature 99.2 F 97.3 F L Pulse Rate 89 79 Respiratory Rate 20 20 Blood Pressure 138/65 81/56 L 105/70 Pulse Oximetry 95 12/24/17 00:00 12/24/17 04:00 12/24/17 04:55 Temperature 100 F H 99.1 F 99.5 F Pulse Rate 90 97 H Respiratory Rate 20 20 Blood Pressure 128/59 L 132/81 Pulse Oximetry 99 99 12/24/17 08:00 12/24/17 12:00 Temperature 99.1 F 98.6 F Pulse Rate 86 81 Respiratory Rate 20 20 Blood Pressure 135/66 99/56 L Pulse Oximetry 99 92 L Intake & Output 12/23/17 12/24/17 12/24/17 18:59 06:59 18:59 Intake Total 2160 / 2160 1459 / 1459 861 / 861 Balance 2160 / 2160 1459 / 1459 861 / 861 Weight 85.8 kg 88.1 kg Intake: IV 1500 / 1500 1339 / 1339 861 / 861 NS Inj 1,000 ML @ 100 mls/hr IV 300 / 300 1339 / 1339 661 / 661 .CONT .Q10H MATHIEU Rx#:[id number] Magnesium Sulfate 1 gm/D5W 100 100 / 100 ml Premix 100 ML @ 100 mls/hr IV.SIG ONCE ONE Rx#:[id number] KCl 10 mEq Premix Inj 10 meq In 100 / 100 100 ml @ 100 mls/hr IV.SIG ONCE ONE Rx#:[id number] KCl 20 mEq Premix Inj 20 meq In 100 / 100 100 ml @ 50 mls/hr IV.SIG Q2H MATHIEU Rx#:[id number] NS Inj 1,000 ML @ Wide Open IV. 1000 / 1000 SIG BOLUS ONE Rx#:[id number] Rocephin Inj 1,000 MG In NS Inj 100 / 100 100 ML @ 200 mls/hr IV.SIG ONCE ONE Rx#:[id number] Oral 660 / 660 120 / 120 Other: # Voids 6 2 Date of Last Bowel Movement 12/22/17 # Bowel Movements 0 0 Narrative: Physical examination GENERAL: Patient is a well-nourished, well-developed female, awake and alert , not in respiratory distress. SKIN: Warm and dry. No generalized rash, no ecchymoses and no evidence of embolic lesions. HEAD: Atraumatic. Normocephalic. No temporal wasting, or tenderness. EYES: [employer] conjunctiva. No petechia or hemorrhage. Pupils equal, round and reactive to light. Extraocular movements full and intact. No scleral icterus. No injection or drainage. EARS, NOSE AND THROAT: Nose without bleeding or purulent nasal discharge. No sinus tenderness. Mucous membranes pink and moist. No oral lesions noted. No exudate. No oral thrush. NECK: Trachea midline. Supple and not tender, no meningeal signs CARDIOVASCULAR: Regular rate and rhythm. No murmurs, rubs or gallops heard RESPIRATORY: Clear to auscultation. Breath sounds equal bilaterally. No rales , wheezing or rhonchi ABDOMEN: Soft, non-tender, nondistended. Bowel sounds present and normoactive. No guarding. No rebound. No organomegaly. EXTREMITIES: No clubbing, cyanosis, or edema.No joint effusion, has good ROM. No calf tenderness. Well perfused and warm. BACK: No CVA tenderness, no spine tenderness NEUROLOGICAL: Awake and alert. Cranial nerves grossly intact. Motor grossly within normal limits. PSYCHIATRIC: Normal affect, calm and cooperative. LINE: No evidence of infection Results - Labs CBC & Chem 7: 12/24/17 04:55 12/24/17 04:55 Labs: Laboratory Results - last 24 hr 12/23/17 12/24/17 12/24/17 10:00 04:55 04:55 CBC w Diff Slide review pending WBC 7.6 RBC 3.71 L Hgb 12.0 Hct 34.3 L MCV 92.4 MCH 32.3 MCHC 35.0 RDW 13.3 Plt Count 43 L MPV 10.2 Neut % (Auto) 80.6 H Lymph % (Auto) 9.6 [place] % (Auto) 8.4 H Eos % (Auto) 0.9 Baso % (Auto) 0.5 Neut # (Auto) 6.2 Lymph # (Auto) 0.7 L [place] # (Auto) 0.6 Eos # (Auto) 0.1 Baso # (Auto) 0.0 WBC Differential . Diff Scan Auto diff confirmed Differential Comment . Platelet Estimate Low L Platelet Morphology Normal RBC Morphology Normal Sodium 144 Potassium 2.9 L* Chloride 111 H Carbon Dioxide 24.1 Anion Gap 9 BUN 7 Creatinine 0.81 Estimated GFR 72 L Random Glucose 103 Calcium 7.6 L D Ur Collection Type Clean catch Urine Color Yellow Urine Clarity Slightly cloudy Urine pH 6.0 Ur Specific Raymond 1.010 Urine Protein 30 H Urine Glucose (UA) Negative Urine Ketones 40 H Urine Occult Blood Moderate H Urine Nitrate Positive H Urine Bilirubin Negative Urine Urobilinogen 0.2 Ur Leukocyte Esterase Moderate H Urine RBC 4-15 H Urine WBC 51-189 H Ur Squamous Epith Cells 0-5 Urine Bacteria Many H Micro UA Comment Culture indicated Ur Microscopic Review Microscopic reviewed Urine Culture Comments Culture indicated - Imaging Abdomen/Pelvis CT 12/23/17 10:04 CONCLUSION: 1. Fibroid uterus, small hiatal hernia. 2. Nonspecific gas pattern. I do not see evidence for colitis or inflammatory changes in the mesentery. Lumbar Spine CT 12/23/17 10:04 CONCLUSION: 1. Marked intervertebral disc space narrowing and sclerosis at the L2-3 level consistent with degenerative disease. No evidence of an acute fracture Assessment and Plan - Plan Impression GNR sepsis, likrly source Known RA Hx urinary frequency has bladder stimulator in place Recommendation Repeat BC to document clearing Follow C/S Follow temps IV Zosyn Will determine course of RX once work-up completed I will follow along with you Thank you for this consultation D/W Alfreda ALLEN
[2017-12-24] MEDS: Piperacil/Tazo 4.5 GM Premix 4.5 GM/100 ML BAG IV.SIG SCH ×2 (17:25→22:16)
--- NOTE | 2017-12-24 18:29 | MB ---
cc: Richie Mukherjee MD DATE: 12/24/2017 ATTENDING PHYSICIAN: ALEJANDRO Miller REASON FOR CONSULTATION: Hematology was consulted to render an opinion regarding a patient with acute thrombocytopenia. HISTORY OF PRESENT ILLNESS: The patient is a very pleasant 57-year-old female who presented to the hospital with complaints of nausea, vomiting, chills and back pain. She was at a wedding last and was doing well. Thursday night, she started experiencing increased chills with nausea and vomiting. She also had increased low back pain. She had increased urinary frequency, but no dysuria. She said her urine was a little cloudy. She did not take her temperature. Her symptoms persisted for about 3 days and she decided to come into the hospital. On admission, she was noted to have a fever. She denies any chest pain. She has no shortness of breath or cough. She denies any melena or hematochezia. She denies any hematuria. She is feeling better since starting on antibiotics. PAST MEDICAL HISTORY: 1. Depression. 2. Rheumatoid arthritis. She was started on Actemra about 6 or 8 months ago. She is also on prednisone. Her last Actemra injection was about 10 days ago. 3. Gastroesophageal reflux disease. 4. Migraine headaches. PAST SURGICAL HISTORY: 1. Left knee replacement. 2. Right hip replacement. 3. Tonsillectomy. 4. Foot surgery. 5. Rosalinda fundoplication. FAMILY HISTORY: Her mother had breast cancer. No hematology disorders in family. She has a daughter who is healthy. She has a brother who is also healthy. SOCIAL HISTORY: She denies tobacco or alcohol use. She lives in [place] in the wintertime. REVIEW OF SYSTEMS: CONSTITUTIONAL: As above. EYES: Negative. ENT: Negative. CARDIOVASCULAR: No chest pressure or palpitations. RESPIRATORY: No shortness of breath or cough. GASTROINTESTINAL: As above. GENITOURINARY: As above. MUSCULOSKELETAL: As above. HEMATOLOGIC: As above. ENDOCRINE: Negative. DERMATOLOGIC: Negative. PSYCHIATRIC: Negative. NEUROLOGIC: Negative. PHYSICAL EXAMINATION: VITAL SIGNS: Temperature 99.1, blood pressure 124/63, O2 saturation 98% on room air. GENERAL: She is alert, oriented x 3, in no acute distress. HEENT: Atraumatic, normocephalic. Pupils are equal, round and reactive to light. Extraocular muscles are intact. No scleral icterus. Oropharynx with dry mucosa. No lesions. No thrush or mucositis. NECK: No thyromegaly. No palpable masses. LYMPHATIC: No palpable cervical, clavicular, axillary or inguinal lymph nodes. CARDIOVASCULAR: Regular S1, S2. No murmur. LUNGS: Clear to auscultation. No wheezing or rhonchi. ABDOMEN: Soft, nontender. I cannot palpate the liver or spleen. EXTREMITIES: No cyanosis, clubbing or edema. No calf tenderness. BACK: No paravertebral tenderness. SKIN: No rash or petechiae. NEUROLOGIC: Nonfocal. LABORATORY DATA REVIEW: I reviewed the blood work during this hospital stay. Platelet count 43,000 today. ASSESSMENT: 1. Thrombocytopenia, which appears to be acute. Her CBC on 12/06/2017 was normal. She presented with a platelet count of 50,000 yesterday. Today, her platelet count has trended down to 43,000. Suspect this is likely a consumptive process due to underlying sepsis. She has no bleeding noted. Her hemoglobin is stable. Her white blood cell count is also normal. Other differential diagnosis would include idiopathic thrombocytopenic purpura or medication induced. However, the patient did not take any new medications recently. 2. Bacteremia. She presented with a fever and chills for several days. She also had urinary frequency and cloudy urine. Blood culture grew gram-negative rods. Infectious disease is following and the patient's symptoms have improved with antibiotics. 3. Rheumatoid arthritis. She was started Actemra about 6 or 8 months ago. She is also on prednisone. 4. Depression. 5. Migraine headaches. RECOMMENDATIONS: 1. Check a DIC panel. 2. Continue to monitor CBC and signs of bleeding. 3. Can transfuse with platelets if there are any signs of bleeding, but I anticipate her platelet count to improve once the infection is controlled. 4. Continue antibiotics pending blood culture. Thank you for asking me to see this patient. MD CINTHYA Ding/horace , 05:20 PM , 05:31 PM
[2017-12-24] MEDS: Famotidine 20 MG Tablet PO SCH (20:28)
[2017-12-24 20:49] LABS: Activated Partial Thrombo Time 18.4 sec (23.4-31.7); Prothrombin Time 10.6 sec (9.8-11.6)
[2017-12-24 20:50] LABS: D-Dimer 4.25 mg/L FEU (0.00-0.50)
[2017-12-25] MEDS: Piperacil/Tazo 4.5 GM Premix 4.5 GM/100 ML BAG IV.SIG SCH ×5 (04:03→21:07)
[2017-12-25] MEDS: Sod Chloride 0.9% Inj 1,000 ML IV.CONT SCH ×4 (05:31→20:28)
[2017-12-25] MEDS: Famotidine 20 MG Tablet PO SCH ×2 (09:42→20:26)
[2017-12-25] MEDS: ARIPiprazole 10 MG Tablet PO SCH (09:42)
[2017-12-25] MEDS: prednisoLONE (w/Alcohol) Liq 15 MG/5 ML Oral Syringe PO SCH (09:43)
[2017-12-25] MEDS: Topiramate 100 MG Tablet PO SCH ×2 (09:43→20:26)
[2017-12-25 09:46] LABS: Baso % (Auto) 0.7 % (0.0-2.0); Eos # (Auto) 0.1 th/mm3 (0.0-0.4); Eos % (Auto) 2.2 % (0.0-4.0); Hematocrit 34.5 % (35.0-46.0); Hemoglobin 12.1 gm/dL (11.6-15.3); Lymph # (Auto) 0.8 th/mm3 (1.0-4.8); Lymph % (Auto) 14.5 % (9.0-44.0); Mean Corpuscular Volume 91.5 fL (80.0-100.0); Mono # (Auto) 0.7 th/mm3 (0.0-0.9); Mono % (Auto) 12.4 % (0.0-8.0); Neut # (Auto) 3.8 th/mm3 (1.8-7.7); Neut % (Auto) 70.2 % (16.0-70.0); Platelet Count 80 th/mm3 (150-450); Red Blood Count 3.78 mil/mm3 (4.00-5.30); Red Cell Distribution Width 13.3 % (11.6-17.2); White Blood Count 5.4 th/mm3 (4.0-11.0)
[2017-12-25 10:22] LABS: Platelet Morphology Normal (Normal)
[2017-12-25] MEDS: Acetaminophen 325 MG Tablet PO PRN ×2 (11:05→18:35)
--- NOTE | 2017-12-25 11:10 | P.PNIM ---
Subjective Interval history: Follow up UTI bacteremia. Patient seen and examined, sitting up in bed comfortably in [facility]. No reports of any acute events overnight, doing well. Denies any shortness of breath, ab pain, n/v/diarrhea, chest pain or dysuria. ID following patient. Afebrile. Physical Exam Vital signs: Vital Signs 12/24/17 12:00 12/24/17 16:00 12/24/17 20:00 Temperature 98.6 F 99.1 F 99 F Pulse Rate 81 89 71 Respiratory Rate 20 20 20 Blood Pressure 99/56 L 124/63 131/65 Pulse Oximetry 92 L 98 99 12/25/17 00:00 12/25/17 08:00 12/25/17 09:41 Temperature 98.4 F 97.5 F L Pulse Rate 67 79 85 Respiratory Rate 20 18 Blood Pressure 138/64 190/83 H 168/88 H Pulse Oximetry 95 99 Intake & Output 12/24/17 12/25/17 12/25/17 18:59 06:59 18:59 Intake Total 1261 / 1261 1800 / 1800 1100 / 1100 Balance 1261 / 1261 1800 / 1800 1100 / 1100 Weight 91.9 kg Intake: IV 961 / 961 1200 / 1200 1100 / 1100 NS Inj 1,000 ML @ 100 mls/hr IV 661 / 661 1000 / 1000 1000 / 1000 .CONT .Q10H MATHIEU Rx#:[id number] Magnesium Sulfate 1 gm/D5W 100 100 / 100 ml Premix 100 ML @ 100 mls/hr IV.SIG ONCE ONE Rx#:[id number] Zosyn 4.5 GM Premix 4.5 gm In 100 / 100 200 / 200 100 / 100 100 ml @ 200 mls/hr IV.SIG Q6H MATHIEU Rx#:[id number] KCl 20 mEq Premix Inj 20 meq In 100 / 100 100 ml @ 50 mls/hr IV.SIG Q2H MATHIEU Rx#:[id number] Oral 300 / 300 600 / 600 Other: # Voids 3 4 Date of Last Bowel Movement 12/24/17 # Bowel Movements 3 Narrative: GENERAL: Patient is a well-nourished, well-developed female, awake and alert , not in respiratory distress. SKIN: Warm and dry. No generalized rash, no ecchymoses and no evidence of embolic lesions. HEAD: Atraumatic. Normocephalic. No temporal wasting, or tenderness. EYES: [employer] conjunctiva. No petechia or hemorrhage. Pupils equal, round and reactive to light. Extraocular movements full and intact. No scleral icterus. No injection or drainage. EARS, NOSE AND THROAT: Nose without bleeding or purulent nasal discharge. No sinus tenderness. Mucous membranes pink and moist. No oral lesions noted. No exudate. No oral thrush. NECK: Trachea midline. Supple and not tender, no meningeal signs CARDIOVASCULAR: Regular rate and rhythm. No murmurs, rubs or gallops heard RESPIRATORY: Clear to auscultation. Breath sounds equal bilaterally. No rales , wheezing or rhonchi ABDOMEN: Soft, non-tender, nondistended. Bowel sounds present and normoactive. No guarding. No rebound. No organomegaly. EXTREMITIES: No clubbing, cyanosis, or edema.No joint effusion, has good ROM. No calf tenderness. Well perfused and warm. BACK: No CVA tenderness, no spine tenderness NEUROLOGICAL: Awake and alert. Cranial nerves grossly intact. Motor grossly within normal limits. PSYCHIATRIC: Normal affect, calm and cooperative. LINE: No evidence of infection Results - Labs CBC & Chem 7: 12/25/17 09:30 12/25/17 06:10 Laboratory Results - last 24 hr 12/24/17 12/25/17 12/25/17 20:16 06:10 09:30 CBC w Diff Slide review pending WBC 5.4 RBC 3.78 L Hgb 12.1 Hct 34.5 L MCV 91.5 MCH 32.0 MCHC 35.0 RDW 13.3 Plt Count 80 L D MPV 10.0 Neut % (Auto) 70.2 H Lymph % (Auto) 14.5 [place] % (Auto) 12.4 H Eos % (Auto) 2.2 Baso % (Auto) 0.7 Neut # (Auto) 3.8 Lymph # (Auto) 0.8 L [place] # (Auto) 0.7 Eos # (Auto) 0.1 Baso # (Auto) 0.0 WBC Differential . Diff Scan Auto diff confirmed Differential Comment . Platelet Estimate Low L Platelet Morphology Normal PT 10.6 INR 1.0 APTT 18.4 L Fibrinogen 334 D-Dimer Quant (PE/DVT) 4.25 H Magnesium 2.4 Microbiology 12/24/17 17:45 Blood - Peripheral Aerobic Blood Culture - Preliminary No growth in 1 day 12/24/17 17:45 Blood - Peripheral Anaerobic Blood Culture - Preliminary No growth in 1 day 12/24/17 17:45 Blood - Peripheral Aerobic Blood Culture - Preliminary No growth in 1 day 12/24/17 17:45 Blood - Peripheral Anaerobic Blood Culture - Preliminary No growth in 1 day 12/23/17 10:00 Clean Catch Urine Urine Culture - Final Klebsiella pneumoniae 12/23/17 10:10 Blood - Peripheral Aerobic Blood Culture - Preliminary Escherichia coli 12/23/17 10:10 Blood - Peripheral Anaerobic Blood Culture - Preliminary gram negative rods 12/23/17 10:20 Blood - Peripheral Aerobic Blood Culture - Preliminary gram negative rods 12/23/17 10:20 Blood - Peripheral Anaerobic Blood Culture - Preliminary gram negative rods Assessment and Plan - Assessment (1) Nausea and vomiting Code(s): R11.2 - Nausea with vomiting, unspecified Status: Acute (2) Urinary tract infection Code(s): N39.0 - Urinary tract infection, site not specified Status: Acute (3) Thrombocytopenia Code(s): D69.6 - Thrombocytopenia, unspecified Status: Acute - Plan This is a 57-year-old female patient with: Bacteremia UTI History of bladder stimulator, placed for urinary frequency -Patient presents with abnormal UA presence of leukocyte esterase, white blood cells and bacteria. Urine culture growing Klebsiella. Fever and tachycardia. -Started on ceftriaxone IV. Switched to Zosyn IV. ID consulted, input and recommendations appreciated. Changed to PO Levaquin today. -Afebrile. No leukocytosis. No dysuria. -Blood cultures positive for E. coli x 4 bottles. Repeat BC negative so far, continue to monitor. -Continue IVF. -Supportive care. Nausea and vomiting. Resolved. Dehydration. Resolved. Hypokalemia suspect secondary from above, improving. -Abdomen/pelvis CT reviewed showing no acute findings. -Replacement as ordered. -Advance diet. -Continue IVF. -Monitor BMP. Thrombocytopenia, improving. -Platelets are 50,000 on presentation, now improved today. -Denies any history of thrombocytopenia. -Consult placed to hematology, input and recommendations appreciated. -Continue to monitor. No obvious signs of bleeding. Rheumatoid arthritis, chronic -Continue home mediations. -Supportive care. Stable at this time. -Toradol as needed for pain. Has helped the pain. Continue. -Lumbar imaging reviewed and showing degenerative disease, no acute findings. DVT Prophylaxis: SCDs. Discharge Planning: Awaiting culture growth. (2) Urinary tract infection Qualifiers: Urinary tract infection type: site unspecified Hematuria presence: without hematuria Qualified Code(s): N39.0 - Urinary tract infection, site not specified
--- NOTE | 2017-12-25 11:44 | P.PNID ---
Subjective Remarks: Patient is a 57-year-old female admitted to the hospital complaining of severe back pain, nausea and vomiting and diarrhea that started last December 20. Patient has problem with urinary frequency and she has a bladder stimulator to help that. She has a first 1 placed but is now working well so she had a second 1 placed by a extension service specialist in charge in [facility] about 7 years ago. It gets suggested as needed depending on her symptoms. She has not had any problem with UTI since she had a stimulator in place. She had UTI when she was younger. On this admission she started having pain in her low back. She also started having vomiting and chills. She really did not take her temperature. She denies any problem with dysuria, but had noted some increased frequency and she just adjusted her stimulator. That has been has been convincing her to, and she finally did and she was admitted yesterday. Blood cultures done on admission are now reported as growing gram-negative sonya. Her urinalysis did show pyuria, urine culture with gram-negative sonya. Lumbar spine CT showing some evidence of degenerative disease. CT of the abdomen and pelvis did not show any kidney abnormality or any hydronephrosis. Her WBC is normal. She has had some fever since admission. Infectious disease consultation has been requested to assist with evaluation and treatment. Notes reviewed Afebrile Back pain better Frequent small BM this morning No abdominal pain No N/V UC Klebsiella BC with E coli by [employer], set up for microscan today and results available tomorrow Joints ok No lines Voiding ok Repeat BC negative so far WBC normal LFT ok except for slightly up alk phos CT A/P no hydro, no colitis, GB looks ok Antibiotics: Zosyn Lines: PIV Past Medical History: Asthma Depression GERD (gastroesophageal reflux disease) Headache, migraine Rheumatoid arthritis History of knee replacement History of tonsillectomy H/O foot surgery History of esophageal surgery History of hip replacement Allergies/Adverse Reactions: Allergies Iodinated Contrast- Oral and IV Dye [Contrast] Allergy (Severe, Verified 09:39) Hives nitrofurantoin [From Macrobid] Allergy (Severe, Verified 12/23/17 10:00) Hives Sulfa (Sulfonamide Antibiotics) Allergy (Severe, Verified 12/23/17 10:00) Hives Objective Vital Signs 12/24/17 12:00 12/24/17 16:00 12/24/17 20:00 Temperature 98.6 F 99.1 F 99 F Pulse Rate 81 89 71 Respiratory Rate 20 20 20 Blood Pressure 99/56 L 124/63 131/65 Pulse Oximetry 92 L 98 99 12/25/17 00:00 12/25/17 08:00 12/25/17 09:41 Temperature 98.4 F 97.5 F L Pulse Rate 67 79 85 Respiratory Rate 20 18 Blood Pressure 138/64 190/83 H 168/88 H Pulse Oximetry 95 99 12/25/17 11:05 Temperature 96.2 F L Pulse Rate 68 Respiratory Rate 18 Blood Pressure 116/69 Pulse Oximetry 99 Intake & Output 12/24/17 12/25/17 12/25/17 18:59 06:59 18:59 Intake Total 1261 / 1261 1800 / 1800 1100 / 1100 Balance 1261 / 1261 1800 / 1800 1100 / 1100 Weight 91.9 kg Intake: IV 961 / 961 1200 / 1200 1100 / 1100 NS Inj 1,000 ML @ 100 mls/hr IV 661 / 661 1000 / 1000 1000 / 1000 .CONT .Q10H MATHIEU Rx#:[id number] Magnesium Sulfate 1 gm/D5W 100 100 / 100 ml Premix 100 ML @ 100 mls/hr IV.SIG ONCE ONE Rx#:[id number] Zosyn 4.5 GM Premix 4.5 gm In 100 / 100 200 / 200 100 / 100 100 ml @ 200 mls/hr IV.SIG Q6H MATHIEU Rx#:[id number] KCl 20 mEq Premix Inj 20 meq In 100 / 100 100 ml @ 50 mls/hr IV.SIG Q2H MATHIEU Rx#:[id number] Oral 300 / 300 600 / 600 Other: # Voids 3 4 Date of Last Bowel Movement 12/24/17 # Bowel Movements 3 12/23/17 10:20 Blood - Peripheral Aerobic Blood Culture - Preliminary Escherichia coli 12/23/17 10:20 Blood - Peripheral Anaerobic Blood Culture - Preliminary Escherichia coli 12/23/17 10:10 Blood - Peripheral Aerobic Blood Culture - Preliminary Escherichia coli 12/23/17 10:10 Blood - Peripheral Anaerobic Blood Culture - Preliminary Escherichia coli 12/24/17 17:45 Blood - Peripheral Aerobic Blood Culture - Preliminary No growth in 1 day 12/24/17 17:45 Blood - Peripheral Anaerobic Blood Culture - Preliminary No growth in 1 day 12/24/17 17:45 Blood - Peripheral Aerobic Blood Culture - Preliminary No growth in 1 day 12/24/17 17:45 Blood - Peripheral Anaerobic Blood Culture - Preliminary No growth in 1 day 12/23/17 10:00 Clean Catch Urine Urine Culture - Final Klebsiella pneumoniae 12/25/17 06:10 Blood - Peripheral Aerobic Blood Culture - Pending 12/25/17 06:10 Blood - Peripheral Anaerobic Blood Culture - Pending Lab - Hematology Results 12/24/17 12/25/17 04:55 09:30 CBC w Diff Slide review pending Slide review pending WBC 7.6 5.4 RBC 3.71 L 3.78 L Hgb 12.0 12.1 Hct 34.3 L 34.5 L MCV 92.4 91.5 MCH 32.3 32.0 MCHC 35.0 35.0 RDW 13.3 13.3 Plt Count 43 L 80 L D MPV 10.2 10.0 Neut % (Auto) 80.6 H 70.2 H Lymph % (Auto) 9.6 14.5 [place] % (Auto) 8.4 H 12.4 H Eos % (Auto) 0.9 2.2 Baso % (Auto) 0.5 0.7 Neut # (Auto) 6.2 3.8 Lymph # (Auto) 0.7 L 0.8 L [place] # (Auto) 0.6 0.7 Eos # (Auto) 0.1 0.1 Baso # (Auto) 0.0 0.0 WBC Differential . . Diff Scan Auto diff confirmed Auto diff confirmed Differential Comment . . Platelet Estimate Low L Low L Platelet Morphology Normal Normal RBC Morphology Normal Lab - Chemistry Results 12/24/17 12/25/17 04:55 06:10 Sodium 144 Potassium 2.9 L* Chloride 111 H Carbon Dioxide 24.1 Anion Gap 9 BUN 7 Creatinine 0.81 Estimated GFR 72 L Random Glucose 103 Calcium 7.6 L D Magnesium 2.4 Imaging: ITS Impressions Abdomen/Pelvis CT 12/23/17 10:04 CONCLUSION: 1. Fibroid uterus, small hiatal hernia. 2. Nonspecific gas pattern. I do not see evidence for colitis or inflammatory changes in the mesentery. Lumbar Spine CT 12/23/17 10:04 CONCLUSION: 1. Marked intervertebral disc space narrowing and sclerosis at the L2-3 level consistent with degenerative disease. No evidence of an acute fracture Physical Exam: GENERAL: awake and alert, not in respiratory distress. SKIN: Warm and dry. No generalized rash, no ecchymoses and no evidence of embolic lesions. HEAD: Atraumatic. Normocephalic. No temporal wasting, or tenderness. EYES: [place] conjunctiva. No petechia or hemorrhage. Pupils equal, round and reactive to light. Extraocular movements full and intact. No scleral icterus. No injection or drainage. EARS, NOSE AND THROAT: Mucous membranes pink and moist. No oral lesions noted. No exudate. No oral thrush. NECK: Trachea midline. Supple and not tender, no meningeal signs CARDIOVASCULAR: Regular rate and rhythm. No murmurs, rubs or gallops heard RESPIRATORY: Clear to auscultation. Breath sounds equal bilaterally. No rales , wheezing or rhonchi ABDOMEN: Soft, non-tender, nondistended. Bowel sounds present and normoactive. No guarding. No rebound. No organomegaly. EXTREMITIES: No clubbing, cyanosis, or edema.No joint effusion, has good ROM. No calf tenderness. Well perfused and warm. BACK: No CVA tenderness, no spine tenderness NEUROLOGICAL: Non-focal PSYCHIATRIC: Normal affect, calm and cooperative. LINE: No evidence of infection Assessment and Plan - Plan Impression ?Ecoli sepsis, likely source - but UC with Klebsiella - no other focus found Kleb UTI Known RA Hx urinary frequency has bladder stimulator in place Recommendation Follow repeat BC to document clearing Follow C/S Follow temps Continue IV Zosyn Add levaquin If temps ok, and no new (+) BC possibly D/C this weekend and gve 14 days Levaquin Monitor progress D/W Alfreda ALLEN Explained plan to patient and
[2017-12-25 12:59] LABS: Chloride 113 meq/L (98-107); Sodium 144 meq/L (136-145)
[2017-12-25 13:02] LABS: Calcium 8.2 mg/dL (8.5-10.1)
[2017-12-25 13:03] LABS: Albumin 3.2 g/dL (3.4-5.0); Anion Gap 11 meq/L (5-15); Blood Urea Nitrogen 7 mg/dL (7-18); Carbon Dioxide 20.3 meq/L (21.0-32.0); Glucose,Random 97 mg/dL (74-106)
[2017-12-25 13:06] LABS: Alanine Aminotransferase 24 U/L (10-53); Aspartate Aminotransferase 26 U/L (15-37); Glomerular Filtration Rate 62 mL/min (>89)
[2017-12-25 13:07] LABS: Total Protein 6.5 g/dL (6.4-8.2)
[2017-12-25 13:09] LABS: Alkaline Phosphatase 78 U/L (45-117)
[2017-12-25] MEDS: levoFLOXacin 750 MG Tablet PO SCH (14:02)
[2017-12-26] MEDS: Sod Chloride 0.9% Inj 1,000 ML IV.CONT SCH ×2 (01:39→05:09)
[2017-12-26] MEDS: Piperacil/Tazo 4.5 GM Premix 4.5 GM/100 ML BAG IV.SIG SCH ×5 (03:05→21:12)
[2017-12-26] MEDS: ARIPiprazole 10 MG Tablet PO SCH (08:47)
[2017-12-26] MEDS: levoFLOXacin 750 MG Tablet PO SCH (08:48)
[2017-12-26] MEDS: Topiramate 100 MG Tablet PO SCH ×2 (08:49→21:12)
[2017-12-26] MEDS: Famotidine 20 MG Tablet PO SCH ×2 (08:49→21:12)
[2017-12-26] MEDS: prednisoLONE (w/Alcohol) Liq 15 MG/5 ML Oral Syringe PO SCH (08:50)
[2017-12-26 09:47] LABS: Calcium 8.3 mg/dL (8.5-10.1)
[2017-12-26 09:48] LABS: Carbon Dioxide 21.8 meq/L (21.0-32.0)
[2017-12-26 09:54] LABS: Potassium 3.2 meq/L (3.5-5.1)
--- NOTE | 2017-12-26 10:27 | ECHRPT ---
Indication: CVA/TIA CONCLUSIONS The left ventricular systolic function is normal with an estimated ejection fraction in the range of 60-65%. Wall thickness is normal. Normal left ventricular size. Trace aortic valve regurgitation. BP: / HR: Rhythm: Sinus MEASUREMENTS (Male / Female) Normal Values Technical Quality:Technically difficult study 2D ECHO LV Diastolic Diameter PLAX 4.1 cm 4.2 - 5.9 / 3.9 - 5.3 cm LV Systolic Diameter PLAX 3.0 cm IVS Diastolic Thickness 0.8 cm 0.6 - 1.0 / 0.6 - 0.9 cm LVPW Diastolic Thickness 0.8 cm 0.6 - 1.0 / 0.6 - 0.9 cm LV Relative Wall Thickness 0.4 LVOT Diameter 1.9 cm M-MODE Aortic Root Diameter MM 2.8 cm LA Systolic Diameter MM 3.5 cm LA Ao Ratio MM 1.3 AV Cusp Separation MM 1.8 cm DOPPLER AV Peak Velocity 156.0 cm/s AV Peak Gradient 9.7 mmHg LVOT Peak Velocity 87.9 cm/s LVOT Peak Gradient 3.1 mmHg AV Area Cont Eq pk 1.6 cm Mitral E Point Velocity 73.5 cm/s Mitral A Point Velocity 54.8 cm/s Mitral E to A Ratio 1.3 TR Peak Velocity 231.0 cm/s TR Peak Gradient 21.3 mmHg Right Atrial Pressure 10.0 mmHg Pulmonary Artery Systolic Pressu 31.3 mmHg Right Ventricular Systolic Press 31.3 mmHg PV Peak Velocity 109.0 cm/s PV Peak Gradient 4.8 mmHg FINDINGS LEFT VENTRICLE The left ventricular systolic function is normal with an estimated ejection fraction in the range of 60-65%. Wall thickness is normal. Normal left ventricular size. Doppler parameters are consistent with impaired left ventricular relaxtion (grade 1 diastolic dysfun ction). @ RIGHT VENTRICLE Normal right ventricular size and systolic function. LEFT ATRIUM The left atrial size is normal. RIGHT ATRIUM The right atrial size is normal. ATRIAL SEPTUM Normal atrial septal thickness without atrial level shunting by limited color doppler interrogation. AORTA The aortic root and proximal ascending aorta are normal in size on limited imaging. MITRAL VALVE Structurally normal mitral valve. No mitral valve stenosis or regurgitation. AORTIC VALVE Trace aortic valve regurgitation. TRICUSPID VALVE Structurally normal tricuspid valve. No tricuspid valve stenosis or regurgitation. PULMONARY VALVE No pulmonary valve regurgitation or stenosis. VESSELS The inferior vena cava is normal in size. PERICARDIUM No pericardial effusion. Kiran Burciaga MD (Electronically Signed) Final Date:26 December 2017 10:26
[2017-12-26] MEDS: Sodium Chloride 0.45 % Inj 1,000 ML IV.CONT SCH ×2 (10:48→21:13)
--- NOTE | 2017-12-26 11:11 | P.PNIM ---
Subjective Interval history: Follow up UTI bacteremia. Patient seen and examined, lying in bed comfortably. Does complain of multiple bouts of diarrhea overnight. Denies any pain. Has been afebrile. Has been tolerating PO intake without any abdominal pain, nausea or vomiting. ID following. Blood cultures with E coli, urine Klebsiella. Physical Exam Vital signs: Vital Signs 12/25/17 15:42 12/25/17 20:00 12/25/17 23:51 Temperature 96.3 F L 96.7 F L 96.2 F L Pulse Rate 60 66 58 L Respiratory Rate 18 18 18 Blood Pressure 141/71 H 133/65 137/64 Pulse Oximetry 99 98 99 12/26/17 08:00 Temperature 97.1 F L Pulse Rate 79 Respiratory Rate 18 Blood Pressure Pulse Oximetry 98 Intake & Output 12/25/17 12/26/17 12/26/17 18:59 06:59 18:59 Intake Total 1200 / 1200 2200 / 2200 600 / 600 Balance 1200 / 1200 2200 / 2200 600 / 600 Weight 94 kg Intake: IV 1200 / 1200 2200 / 2200 600 / 600 NS Inj 1,000 ML @ 100 mls/hr IV 1000 / 1000 2000 / 2000 500 / 500 .CONT .Q10H MATHIEU Rx#:[id number] Zosyn 4.5 GM Premix 4.5 gm In 200 / 200 200 / 200 100 / 100 100 ml @ 200 mls/hr IV.SIG Q6H MATHEIU Rx#:[id number] Other: # Voids 7 5 Date of Last Bowel Movement 12/26/17 # Bowel Movements 3 5 Narrative: GENERAL: Patient is a well-nourished, well-developed female, awake and alert , not in respiratory distress. SKIN: Warm and dry. No generalized rash, no ecchymoses. HEAD: Atraumatic. Normocephalic. No temporal wasting, or tenderness. EYES: [place] conjunctiva. No petechia or hemorrhage. Pupils equal, round and reactive to light. Extraocular movements full and intact. No scleral icterus. No injection or drainage. EARS, NOSE AND THROAT: Nose without bleeding or purulent nasal discharge. No sinus tenderness. Mucous membranes pink and moist. No oral lesions noted. No exudate. No oral thrush. NECK: Trachea midline. Supple and not tender, no meningeal signs CARDIOVASCULAR: Regular rate and rhythm. No murmurs, rubs or gallops heard RESPIRATORY: Clear to auscultation. Breath sounds equal bilaterally. No rales , wheezing or rhonchi ABDOMEN: Soft, non-tender, nondistended. Bowel sounds present and normoactive. No guarding. No rebound. No organomegaly. EXTREMITIES: No clubbing, cyanosis, or edema.No joint effusion, has good ROM. No calf tenderness. Well perfused and warm. NEUROLOGICAL: Awake and alert. Cranial nerves grossly intact. Motor grossly within normal limits. Results - Labs CBC & Chem 7: 12/25/17 09:30 12/26/17 08:57 Laboratory Results - last 24 hr 12/25/17 12/26/17 06:10 08:57 Sodium 144 146 H Potassium 3.0 L 3.2 L Chloride 113 H 114 H Carbon Dioxide 20.3 L 21.8 Anion Gap 11 10 BUN 7 6 L Creatinine 0.93 0.83 Estimated GFR 62 L 70 L Random Glucose 97 107 H Calcium 8.2 L 8.3 L Total Bilirubin 0.6 AST 26 ALT 24 Alkaline Phosphatase 78 Total Protein 6.5 Albumin 3.2 L Microbiology 12/25/17 06:10 Blood - Peripheral Aerobic Blood Culture - Preliminary No growth in 1 day 12/25/17 06:10 Blood - Peripheral Anaerobic Blood Culture - Preliminary No growth in 1 day 12/24/17 17:45 Blood - Peripheral Aerobic Blood Culture - Preliminary No growth in 2 days 12/24/17 17:45 Blood - Peripheral Anaerobic Blood Culture - Preliminary No growth in 2 days 12/24/17 17:45 Blood - Peripheral Aerobic Blood Culture - Final Escherichia coli 12/24/17 17:45 Blood - Peripheral Anaerobic Blood Culture - Preliminary No growth in 2 days 12/23/17 10:20 Blood - Peripheral Aerobic Blood Culture - Final Escherichia coli 12/23/17 10:20 Blood - Peripheral Anaerobic Blood Culture - Final Escherichia coli 12/23/17 10:10 Blood - Peripheral Aerobic Blood Culture - Final Escherichia coli 12/23/17 10:10 Blood - Peripheral Anaerobic Blood Culture - Final Escherichia coli 12/23/17 10:00 Clean Catch Urine Urine Culture - Final Klebsiella pneumoniae Assessment and Plan - Assessment (1) Nausea and vomiting Code(s): R11.2 - Nausea with vomiting, unspecified Status: Acute (2) Urinary tract infection Code(s): N39.0 - Urinary tract infection, site not specified Status: Acute (3) Thrombocytopenia Code(s): D69.6 - Thrombocytopenia, unspecified Status: Acute - Plan This is a 57-year-old female patient with: Bacteremia secondary to UTI? History of bladder stimulator, placed for urinary frequency -Patient presents with abnormal UA presence of leukocyte esterase, white blood cells and bacteria. Urine culture growing Klebsiella. Fever and tachycardia. -Started on ceftriaxone IV. Switched to Zosyn IV. ID consulted, input and recommendations appreciated. Added Levaquin. -Afebrile. No leukocytosis. No dysuria. -Blood cultures positive for E. coli x 4 bottles. Repeat BC negative so far, continue to monitor. -ECHO ordered and reviewed not significant for any acute findings. -Continue IVF. -Supportive care. Diarrhea -Complaints of multiple bouts of diarrhea overnight. -Check stool studies including c diff. Continue IVF. Nausea and vomiting. Resolved. Dehydration. Resolved. Hypokalemia suspect secondary from above, improving. -Abdomen/pelvis CT reviewed showing no acute findings. -Replacement as ordered. -Advance diet as tolerated. -Continue IVF. -Monitor BMP. Thrombocytopenia, improving. -Platelets are 50,000 on presentation, now improved today. -Denies any history of thrombocytopenia. -Consult placed to hematology, input and recommendations appreciated. -Continue to monitor. No obvious signs of bleeding. Rheumatoid arthritis, chronic -Continue home mediations. -Supportive care. Stable at this time. -Toradol as needed for pain. Has helped the pain. Continue. -Lumbar imaging reviewed and showing degenerative disease, no acute findings. DVT Prophylaxis: SCDs. Discharge Planning: Awaiting clinical improvement and cultures. (2) Urinary tract infection Qualifiers: Urinary tract infection type: site unspecified Hematuria presence: without hematuria Qualified Code(s): N39.0 - Urinary tract infection, site not specified
[2017-12-26] MEDS: Acetaminophen 325 MG Tablet PO PRN ×2 (14:44→18:48)
[2017-12-26] MEDS ORDERED: amLODIPine 5 MG Tablet PO SCH (16:00)
[2017-12-26] MEDS ORDERED: amLODIPine 5 MG Tablet PO ONE (20:00)
[2017-12-27] MEDS: Piperacil/Tazo 4.5 GM Premix 4.5 GM/100 ML BAG IV.SIG SCH ×2 (04:59→11:54)
[2017-12-27 08:56] LABS: Baso % (Auto) 0.8 % (0.0-2.0); Eos # (Auto) 0.2 th/mm3 (0.0-0.4); Lymph # (Auto) 1.5 th/mm3 (1.0-4.8); Lymph % (Auto) 25.8 % (9.0-44.0); Mean Corpuscular HGB Conc 33.4 % (32.0-36.0); Mean Corpuscular Hemoglobin 31.4 pg (27.0-34.0); Mean Platelet Volume 9.4 fL (7.0-11.0); Mono # (Auto) 0.8 th/mm3 (0.0-0.9); Mono % (Auto) 13.2 % (0.0-8.0); Neut # (Auto) 3.5 th/mm3 (1.8-7.7); Neut % (Auto) 56.2 % (16.0-70.0); Red Blood Count 3.82 mil/mm3 (4.00-5.30); Red Cell Distribution Width 12.5 % (11.6-17.2)
[2017-12-27] MEDS ORDERED: amLODIPine 5 MG Tablet PO SCH (09:00)
[2017-12-27 09:02] LABS: Potassium 3.2 meq/L (3.5-5.1)
[2017-12-27 09:05] LABS: Calcium 8.7 mg/dL (8.5-10.1); Carbon Dioxide 22.9 meq/L (21.0-32.0)
[2017-12-27 09:09] LABS: Platelet Count 159 th/mm3 (150-450)
[2017-12-27] MEDS: Famotidine 20 MG Tablet PO SCH (09:18)
[2017-12-27] MEDS: ARIPiprazole 10 MG Tablet PO SCH (09:19)
[2017-12-27] MEDS: prednisoLONE (w/Alcohol) Liq 15 MG/5 ML Oral Syringe PO SCH (09:20)
[2017-12-27] MEDS: Topiramate 100 MG Tablet PO SCH (09:20)
[2017-12-27 10:00] VITALS: RESP 20
--- NOTE | 2017-12-27 10:44 | P.PNIM ---
Physical Exam Vital signs: Vital Signs 12/26/17 12:00 12/26/17 16:00 12/26/17 18:50 Temperature 97.0 F L 98.0 F Pulse Rate 72 67 Respiratory Rate 15 17 Blood Pressure 164/75 H 187/81 H 164/98 H Pulse Oximetry 100 100 12/26/17 20:00 12/27/17 00:00 12/27/17 08:00 Temperature 97.9 F 97.1 F L 97.4 F L Pulse Rate 61 60 80 Respiratory Rate 19 18 20 Blood Pressure 136/76 142/80 H 138/81 Pulse Oximetry 97 99 100 Intake & Output 12/26/17 12/27/17 12/27/17 18:59 06:59 18:59 Intake Total 1200 / 1200 1200 / 1200 Balance 1200 / 1200 1200 / 1200 Weight 92.3 kg Intake: IV 700 / 700 1200 / 1200 NS Inj 1,000 ML @ 100 mls/hr IV 500 / 500 .CONT .Q10H MATHIEU Rx#:[id number] 1/2 Normal Saline Inj 1,000 ML 1000 / 1000 @ 42 mls/hr IV.CONT .[id number] MATHIEU Rx#:[id number] Zosyn 4.5 GM Premix 4.5 gm In 200 / 200 200 / 200 100 ml @ 200 mls/hr IV.SIG Q6H MATHIEU Rx#:[id number] Oral 500 / 500 Other: # Voids 3 4 Date of Last Bowel Movement 12/26/17 12/26/17 # Bowel Movements 2 Results - Labs CBC & Chem 7: 12/27/17 08:46 12/27/17 08:46 Laboratory Results - last 24 hr 12/26/17 12/26/17 12/27/17 10:00 11:00 08:46 CBC w Diff WBC RBC Hgb Hct MCV MCH MCHC RDW Plt Count MPV Neut % (Auto) Lymph % (Auto) [place] % (Auto) Eos % (Auto) Baso % (Auto) Neut # (Auto) Lymph # (Auto) [place] # (Auto) Eos # (Auto) Baso # (Auto) WBC Differential Differential Comment Sodium 144 Potassium 3.2 L Chloride 110 H Carbon Dioxide 22.9 Anion Gap 11 BUN 4 L Creatinine 0.80 Estimated GFR 73 L Random Glucose 107 H Calcium 8.7 Eosinophil Stool Smear None seen Stl C.difficile DNA Amp Negative St C. diff Tox Epid 027 Negative 12/27/17 08:46 CBC w Diff Auto diff final WBC 6.0 RBC 3.82 L Hgb 12.0 Hct 36.0 MCV 94.0 MCH 31.4 MCHC 33.4 RDW 12.5 Plt Count 159 D MPV 9.4 Neut % (Auto) 56.2 Lymph % (Auto) 25.8 [place] % (Auto) 13.2 H Eos % (Auto) 4.0 Baso % (Auto) 0.8 Neut # (Auto) 3.5 Lymph # (Auto) 1.5 [place] # (Auto) 0.8 Eos # (Auto) 0.2 Baso # (Auto) 0.0 WBC Differential . Differential Comment . Sodium Potassium Chloride Carbon Dioxide Anion Gap BUN Creatinine Estimated GFR Random Glucose Calcium Eosinophil Stool Smear Stl C.difficile DNA Amp St C. diff Tox Epid 027 Microbiology 12/26/17 10:00 Stool Stool for WBCs - Final Rare WBC's 12/25/17 06:10 Blood - Peripheral Aerobic Blood Culture - Preliminary No growth in 1 day 12/25/17 06:10 Blood - Peripheral Anaerobic Blood Culture - Preliminary No growth in 1 day 12/24/17 17:45 Blood - Peripheral Aerobic Blood Culture - Preliminary No growth in 2 days 12/24/17 17:45 Blood - Peripheral Anaerobic Blood Culture - Preliminary No growth in 2 days 12/24/17 17:45 Blood - Peripheral Aerobic Blood Culture - Final Escherichia coli 12/24/17 17:45 Blood - Peripheral Anaerobic Blood Culture - Preliminary No growth in 2 days 12/23/17 10:20 Blood - Peripheral Aerobic Blood Culture - Final Escherichia coli 12/23/17 10:20 Blood - Peripheral Anaerobic Blood Culture - Final Escherichia coli 12/23/17 10:10 Blood - Peripheral Aerobic Blood Culture - Final Escherichia coli 12/23/17 10:10 Blood - Peripheral Anaerobic Blood Culture - Final Escherichia coli Assessment and Plan - Assessment (1) Nausea and vomiting Code(s): R11.2 - Nausea with vomiting, unspecified Status: Acute (2) Urinary tract infection Code(s): N39.0 - Urinary tract infection, site not specified Status: Acute (3) Thrombocytopenia Code(s): D69.6 - Thrombocytopenia, unspecified Status: Acute - Plan This is a 57-year-old female patient with: Bacteremia secondary to UTI? History of bladder stimulator, placed for urinary frequency -Patient presents with abnormal UA presence of leukocyte esterase, white blood cells and bacteria. Urine culture growing Klebsiella. Fever and tachycardia. -Started on ceftriaxone IV. Switched to Zosyn IV. ID consulted, input and recommendations appreciated. Added Levaquin. -Afebrile. No leukocytosis. No dysuria. -Blood cultures positive for E. coli x 4 bottles. Repeat BC negative so far, continue to monitor. -ECHO ordered and reviewed not significant for any acute findings. -Continue IVF. -Supportive care. Diarrhea -Complaints of multiple bouts of diarrhea overnight. -Check stool studies including c diff. Continue IVF. Nausea and vomiting. Resolved. Dehydration. Resolved. Hypokalemia suspect secondary from above, improving. -Abdomen/pelvis CT reviewed showing no acute findings. -Replacement as ordered. -Advance diet as tolerated. -Continue IVF. -Monitor BMP. Thrombocytopenia, improving. -Platelets are 50,000 on presentation, now improved today. -Denies any history of thrombocytopenia. -Consult placed to hematology, input and recommendations appreciated. -Continue to monitor. No obvious signs of bleeding. Rheumatoid arthritis, chronic -Continue home mediations. -Supportive care. Stable at this time. -Toradol as needed for pain. Has helped the pain. Continue. -Lumbar imaging reviewed and showing degenerative disease, no acute findings. DVT Prophylaxis: SCDs. Discharge Planning: Awaiting clinical improvement and cultures. (2) Urinary tract infection Qualifiers: Urinary tract infection type: site unspecified Hematuria presence: without hematuria Qualified Code(s): N39.0 - Urinary tract infection, site not specified
--- NOTE | 2017-12-27 10:44 | P.DS ---
Date of admission: 12/25/17 12:08 Primary care physician: PROVIDER NON STAFF Anticipated date of discharge: 12/27/17 Brief History from admission: This is a 57-year-old female patient with a known medical history of urinary frequency with bladder stimulator placement, RA, hyperlipemia, and GERD who presented to the ED with complaints of nausea, vomiting and diarrhea x 3 days. Patient states that she has been sick to her stomach starting on Thursday and has been unable to eat anything without vomiting. She also states that she has had some loose stool over the weekend, denies any fever at home. Does admit to chills. She denies any cough, shortness of breath, abdominal pain, or dysuria. Does complain of urinary frequency abnormal to her baseline. Denies any recent antibiotic use or recent UTI. Patient does have a history of a bladder stimulator that was placed roughly 15 years ago, follows with Dr. Nash, this was rechecked about 2 months ago without any problems. Patient does follow with PCP in [place], patient [place]. PCP has recently placed her on prednisone for better control of her RA pain. DS: Diagnosis - Discharge Diagnosis (1) Nausea and vomiting Status: Acute (2) Urinary tract infection Status: Acute (3) Thrombocytopenia Status: Acute DS: Medications - Discharge Medications Prescriptions: amlodipine [Norvasc] 10 mg PO DAILY 30 Days #60 tab ciprofloxacin HCl 750 mg PO Q12HR 14 Days tab DS: Summary Hospital Course: This is a 57-year-old female patient with bacteremia secondary to UTI. Patient has a history of bladder stimulator, placed for urinary frequency. Patient presented with abnormal UA presence of leukocyte esterase, white blood cells and bacteria. Urine culture growing Klebsiella. Fever and tachycardia. Started on ceftriaxone IV. Switched to Zosyn IV. ID consulted. Added Levaquin. Blood cultures positive for E. coli x 4 bottles. Repeat BC negative so far, continue to monitor. ECHO ordered and not significant for any acute findings. Patient also had a few bouts of diarrhea, c diff negative and resolved on day of dc. Patient was also dehydrated with nausea and vomiting and hypokalemia. Abdomen/ pelvis CT reviewed showing no acute findings. These improved prior to DC. It was found that patient had thrombocytopenia, platelets are 50,000 on presentation, improved during hospitalization. Denies any history of thrombocytopenia. Consult placed to hematology, states that the thrombocytopenia is secondary to acute illness with bacteremia. Rheumatoid arthritis, chronic. Continue home mediations. Toradol as needed for pain. Helped the pain. Lumbar imaging reviewed and showing degenerative disease, no acute findings. Patient stable to DC. RX as written. Diet as tolerated. Activity as tolerated. Follow up PCP. - Time Spent with Patient Total time spent providing and/or coordinating discharge services: Greater than 30 minutes - Quality: VTE Deep Vein Thrombosis/Pulmonary Embolism Present on Admission: No Exam Vital signs: Vital Signs 12/26/17 12:00 12/26/17 16:00 12/26/17 18:50 Temperature 97.0 F L 98.0 F Pulse Rate 72 67 Respiratory Rate 15 17 Blood Pressure 164/75 H 187/81 H 164/98 H Pulse Oximetry 100 100 12/26/17 20:00 12/27/17 00:00 12/27/17 08:00 Temperature 97.9 F 97.1 F L 97.4 F L Pulse Rate 61 60 80 Respiratory Rate 19 18 20 Blood Pressure 136/76 142/80 H 138/81 Pulse Oximetry 97 99 100 Intake & Output 12/26/17 12/27/17 12/27/17 18:59 06:59 18:59 Intake Total 1200 / 1200 1200 / 1200 Balance 1200 / 1200 1200 / 1200 Weight 92.3 kg Intake: IV 700 / 700 1200 / 1200 NS Inj 1,000 ML @ 100 mls/hr IV 500 / 500 .CONT .Q10H MATHIEU Rx#:[id number] 1/2 Normal Saline Inj 1,000 ML 1000 / 1000 @ 42 mls/hr IV.CONT .[id number] MATHIEU Rx#:[id number] Zosyn 4.5 GM Premix 4.5 gm In 200 / 200 200 / 200 100 ml @ 200 mls/hr IV.SIG Q6H MATHIEU Rx#:[id number] Oral 500 / 500 Other: # Voids 3 4 Date of Last Bowel Movement 12/26/17 12/26/17 # Bowel Movements 2 Narrative: GENERAL: Patient is a well-nourished, well-developed female, awake and alert , not in respiratory distress. SKIN: Warm and dry. No generalized rash, no ecchymoses. HEAD: Atraumatic. Normocephalic. No temporal wasting, or tenderness. EYES: Cole conjunctiva. No petechia or hemorrhage. Pupils equal, round and reactive to light. Extraocular movements full and intact. No scleral icterus. No injection or drainage. EARS, NOSE AND THROAT: Nose without bleeding or purulent nasal discharge. No sinus tenderness. Mucous membranes pink and moist. No oral lesions noted. No exudate. No oral thrush. NECK: Trachea midline. Supple and not tender, no meningeal signs CARDIOVASCULAR: Regular rate and rhythm. No murmurs, rubs or gallops heard RESPIRATORY: Clear to auscultation. Breath sounds equal bilaterally. No rales , wheezing or rhonchi ABDOMEN: Soft, non-tender, nondistended. Bowel sounds present and normoactive. No guarding. No rebound. No organomegaly. EXTREMITIES: No clubbing, cyanosis, or edema.No joint effusion, has good ROM. No calf tenderness. Well perfused and warm. NEUROLOGICAL: Awake and alert. Cranial nerves grossly intact. Motor grossly within normal limits. Results Procedures completed during hospitalization: See below. Labs on day of discharge: Labs from last 24 hours 12/27/17 12/27/17 12/26/17 08:46 08:46 11:00 CBC w Diff Auto diff final WBC 6.0 RBC 3.82 L Hgb 12.0 Hct 36.0 MCV 94.0 MCH 31.4 MCHC 33.4 RDW 12.5 Plt Count 159 D MPV 9.4 Neut % (Auto) 56.2 Lymph % (Auto) 25.8 Canadian % (Auto) 13.2 H Eos % (Auto) 4.0 Baso % (Auto) 0.8 Neut # (Auto) 3.5 Lymph # (Auto) 1.5 Canadian # (Auto) 0.8 Eos # (Auto) 0.2 Baso # (Auto) 0.0 WBC Differential . Differential Comment . Sodium 144 Potassium 3.2 L Chloride 110 H Carbon Dioxide 22.9 Anion Gap 11 BUN 4 L Creatinine 0.80 Estimated GFR 73 L Random Glucose 107 H Calcium 8.7 Stool Sodium Pending Stool Potassium Pending Stool Chloride Pending Stool Osmolality Pending Stool Osmotic Gap Pending Stool Phosphorous Pending Stool Magnesium Pending Eosinophil Stool Smear Stl C.difficile DNA Amp St C. diff Tox Epid 027 12/26/17 12/26/17 11:00 10:00 CBC w Diff WBC RBC Hgb Hct MCV MCH MCHC RDW Plt Count MPV Neut % (Auto) Lymph % (Auto) Canadian % (Auto) Eos % (Auto) Baso % (Auto) Neut # (Auto) Lymph # (Auto) Canadian # (Auto) Eos # (Auto) Baso # (Auto) WBC Differential Differential Comment Sodium Potassium Chloride Carbon Dioxide Anion Gap BUN Creatinine Estimated GFR Random Glucose Calcium Stool Sodium Stool Potassium Stool Chloride Stool Osmolality Stool Osmotic Gap Stool Phosphorous Stool Magnesium Eosinophil Stool Smear None seen Stl C.difficile DNA Amp Negative St C. diff Tox Epid 027 Negative Preliminary micro results at discharge 12/25/17 06:10 Aerobic Blood Culture - Preliminary Blood - Peripheral No growth in 1 day Anaerobic Blood Culture - Preliminary No growth in 1 day 12/24/17 17:45 Aerobic Blood Culture - Preliminary Blood - Peripheral No growth in 2 days Anaerobic Blood Culture - Preliminary No growth in 2 days 12/24/17 17:45 Anaerobic Blood Culture - Preliminary Blood - Peripheral No growth in 2 days - Impressions ITS Impressions Abdomen/Pelvis CT 12/23/17 10:04 CONCLUSION: 1. Fibroid uterus, small hiatal hernia. 2. Nonspecific gas pattern. I do not see evidence for colitis or inflammatory changes in the mesentery. Lumbar Spine CT 12/23/17 10:04 CONCLUSION: 1. Marked intervertebral disc space narrowing and sclerosis at the L2-3 level consistent with degenerative disease. No evidence of an acute fracture Discharge Plan - Discharge Disposition Patient Disposition: 01 Discharge Home - Discharge Condition Condition: Stable - Discharge Order Discharge Orders: Discharge Order (Routine); Ordered 12/27/17 Ordered By: Eulalia Jansen - Discharge Details Discharge Comment: OK TO DC IN THE AFTERNOON if tolerated CIPRO well - Physicians Team Primary Care Provider: NON STAFF,PROVIDER Attending Provider: Gregorio Burroughs Other Providers: ; Osbaldo Ramirez MD ; Latesha Shah MD
[2017-12-27] MEDS ORDERED: Ciprofloxacin 250 MG Tablet PO SCH (12:00)
[2017-12-27 14:41] VITALS: BP 148/73; PULSE 77; TEMP 96.7; O2SAT 98
[2018-01-04 21:51] LABS: Chloride, Feces 63 mmol/L (See Comment); Osmolality, Feces 276 mOsm/kg (See Comment); Potassium, Feces 41 mmol/L; Sodium, Feces 90 mmol/L
== END 2017-12-27 14:12 | disposition home or self-care (01) | DRG 690 ==
LOC: PHEDA 09:23 → PHED 09:23 → PH3 12:50
PROVIDERS: ADMIT Hospitalist; ATTEND Hospitalist
CPT/HCPCS: 72131; 74176; 80048; 80053; 81001; 82438; 83605; 83735; 84100; 84302; 84999; 85025; 85379; 85384; 85610; 85730; 87040; 87077; 87086; 87149; 87186; 87205; 87493; 90761; 90765; 90768; 90775; 93306; 96361; 96365; 96366; 96368; 96375; 96376; 99285; G0378; J0696; J1720; J1885; J2270; J2405; J2543; J3475; J3480; J7030; J7510